=== PATIENT | male | born 1935 | race Caucasian/White ===

== ENCOUNTER 2017-02-03 08:59 | Inpatient (IN) | payer MEDICARE, BC ==
[~2017-02-03] VITALS: Ht 175.3 cm; Wt 68.4 kg
[~2017-02-03 08:59] MED LIST: ASPI-496 PO; ASPI-650 PO; CALC667C PO; CHOL20002 PO; DICY20TA3 PO; FERR325T20 PO; FOLI1TAB39 PO; ISOS30TA8 PO; LEVO75TA5 PO; METO25TA35 PO; METR250T PO; OMEP20CA9 PO; ROSU5TAB PO; SUCR1ORA11 PO; TETR250C3 PO; [UNRECOGNIZED DRUG - CODE] PO; [UNRECOGNIZED DRUG - REMARK]; [UNRECOGNIZED DRUG - REMARK] PO
[2017-02-03] MEDS ORDERED: SODIUM CHLORIDE FLUSH 10ML SYR IVF ONE (09:30)
[2017-02-03 09:55] LABS: HEMOGLOBIN 9.6 g/dL (13.7-18.0)
[2017-02-03 10:07] LABS: BLOOD UREA NITROGEN 36 mg/dL (7-18)
[2017-02-03 10:13] LABS: ASPARTATE AMINO TRANSFERASE 14 U/L (15-37)
[2017-02-03 10:14] LABS: IS PT STATUS REG ER OR PRE ER? YES
[2017-02-03] MEDS: LEVOTHYROXINE 75 MCG TABLET PO SCH (11:30)
[2017-02-03] MEDS ORDERED: POLYETHYLENE GLYCOL 17 GM PACKET PO PRN (12:00)
[2017-02-03] MEDS ORDERED: DOCUSATE 100 MG CAPSULE PO PRN (12:00)
[2017-02-03] MEDS: HEPARIN 5,000 UNITS/ML, 1ML SQ SCH ×2 (12:00→23:13)
[2017-02-03] MEDS ORDERED: ACETAMINOPHEN 325 MG TABLET PO PRN (12:00)
[2017-02-03] MEDS ORDERED: BISACODYL 10 MG SUPP PR PRN (12:00)
[2017-02-03 12:30] LABS: TOTAL IRON BINDING CAPACITY 279 mcg/dL (250-450)
[2017-02-03 12:32] LABS: IS PT STATUS REG ER OR PRE ER? YES
[2017-02-03 17:44] LABS: IS PT STATUS REG ER OR PRE ER? YES
[2017-02-03 19:45] VITALS: BP 122/54
[2017-02-03 20:00] VITALS: BP 147/68
[2017-02-03] MEDS ORDERED: TEMPLATE NON-FORMULARY MED. (Rosuvastatin Calcium** (Crestor**) 5 MG) PO SCH (21:00)
[2017-02-03 21:31] LABS: IS PT STATUS REG ER OR PRE ER? NO
[2017-02-03] MEDS: METOPROLOL TARTRATE 25 MG TABLET PO SCH (23:12)
[2017-02-04 02:07] VITALS: BP 146/74
[2017-02-04 07:30] LABS: HEMOGLOBIN 8.9 g/dL (13.7-18.0)
[2017-02-04 07:38] LABS: ASPARTATE AMINO TRANSFERASE 14 U/L (15-37); BLOOD UREA NITROGEN 56 mg/dL (7-18)
[2017-02-04 07:47] LABS: IS PT STATUS REG ER OR PRE ER? NO
[2017-02-04 08:39] VITALS: BP 146/70
[2017-02-04] MEDS ORDERED: VITAMIN B COMP W C PO SCH (09:00)
[2017-02-04] MEDS ORDERED: FOLIC ACID PO SCH (09:00)
[2017-02-04] MEDS: HEPARIN 5,000 UNITS/ML, 1ML SQ SCH ×2 (09:41→18:12)
[2017-02-04] MEDS: CHOLECALCIFEROL 1,000 UNIT TABLET PO SCH (09:42)
[2017-02-04] MEDS: ISOSORBIDE MONONITRATE ER 30 MG TABLET PO SCH (09:42)
[2017-02-04] MEDS: METOPROLOL TARTRATE 25 MG TABLET PO SCH ×2 (09:42→22:00)
[2017-02-04] MEDS: LEVOTHYROXINE 75 MCG TABLET PO SCH (09:42)
[2017-02-04 11:27] LABS: IS PT STATUS REG ER OR PRE ER? NO
[2017-02-04 14:26] VITALS: BP 142/78
[2017-02-04 20:00] VITALS: BP 162/78
[2017-02-04] MEDS: TEMPLATE NON-FORMULARY MED. (Rosuvastatin Calcium** (Crestor**) 5 MG) PO SCH (21:00)
[2017-02-05 01:21] VITALS: BP 165/80
[2017-02-05] MEDS: HEPARIN 5,000 UNITS/ML, 1ML SQ SCH ×3 (02:10→18:52)
[2017-02-05] MEDS ORDERED: REGADENOSON 0.4 MG/5 ML SYRINGE ONE (07:44)
[2017-02-05 07:57] VITALS: BP 163/79
[2017-02-05] MEDS: VITAMIN B COMP W C PO SCH (09:00)
[2017-02-05] MEDS: FOLIC ACID PO SCH (09:00)
[2017-02-05] MEDS: LEVOTHYROXINE 75 MCG TABLET PO SCH (10:41)
[2017-02-05] MEDS: METOPROLOL TARTRATE 25 MG TABLET PO SCH ×2 (10:42→20:40)
[2017-02-05] MEDS: CHOLECALCIFEROL 1,000 UNIT TABLET PO SCH (10:43)
[2017-02-05] MEDS: ISOSORBIDE MONONITRATE ER 30 MG TABLET PO SCH (10:43)
[2017-02-05 12:52] VITALS: BP 161/76
[2017-02-05] MEDS ORDERED: ARANESP 100 MCG/ML **ESRD SQ SCH (13:30)
[2017-02-05 18:03] VITALS: BP 173/78
[2017-02-05] MEDS ORDERED: LABETALOL 20 MG/4 ML IVPush ONE (19:00)
[2017-02-05 20:38] VITALS: BP 167/73
[2017-02-05] MEDS: TEMPLATE NON-FORMULARY MED. (Rosuvastatin Calcium** (Crestor**) 5 MG) PO SCH (20:40)
[2017-02-06] MEDS: HEPARIN 5,000 UNITS/ML, 1ML SQ SCH ×2 (02:11→11:05)
[2017-02-06 02:13] VITALS: BP 154/80
[2017-02-06] MEDS ORDERED: ASPIRIN 81 MG TABLET EC PO SCH (06:00)
[2017-02-06 06:45] VITALS: BP 157/76
[2017-02-06 09:23] LABS: HEP B SURF. AB < 3.1 mIU/mL (0.0-10.0)
[2017-02-06] MEDS: FOLIC ACID PO SCH (11:03)
[2017-02-06] MEDS: VITAMIN B COMP W C PO SCH (11:03)
[2017-02-06] MEDS: ISOSORBIDE MONONITRATE ER 30 MG TABLET PO SCH (11:04)
[2017-02-06] MEDS: METOPROLOL TARTRATE 25 MG TABLET PO SCH (11:04)
[2017-02-06] MEDS: CHOLECALCIFEROL 1,000 UNIT TABLET PO SCH (11:04)
[2017-02-06] MEDS: LEVOTHYROXINE 75 MCG TABLET PO SCH (11:05)
[2017-02-06] MEDS ORDERED: ASPI-621 PO (12:08)
[2017-02-06 12:30] VITALS: BP 157/74
== END 2017-02-06 13:49 | disposition home or self-care (01) | DRG 280 ==
LOC: ED 09:32 → EDIP 10:26 → 4WST 19:17 → 4EST 21:05 → DCLOUNGE 02-06 13:18
PROVIDERS: ADMIT Internal Medicine; ATTEND Family Medicine
DX: I21.19 ST elevation (STEMI) myocardial infarction involving other coronary artery of inferior wall (principal); N18.6 End stage renal disease; G93.41 Metabolic encephalopathy; F05 Delirium due to known physiological condition; E44.0 Moderate protein-calorie malnutrition; I12.0 Hypertensive chronic kidney disease with stage 5 chronic kidney disease or end stage renal disease; N17.9 Acute kidney failure, unspecified; F03.90 Unspecified dementia, unspecified severity, without behavioral disturbance, psychotic disturbance, mood disturbance, and anxiety; I25.5 Ischemic cardiomyopathy; D63.1 Anemia in chronic kidney disease; E03.9 Hypothyroidism, unspecified; E78.5 Hyperlipidemia, unspecified; F42.9 Obsessive-compulsive disorder, unspecified; G47.33 Obstructive sleep apnea (adult) (pediatric); I25.10 Atherosclerotic heart disease of native coronary artery without angina pectoris; I25.2 Old myocardial infarction; Z82.49 Family history of ischemic heart disease and other diseases of the circulatory system; Z91.81 History of falling; Z95.1 Presence of aortocoronary bypass graft; Z99.2 Dependence on renal dialysis; Z81.8 Family history of other mental and behavioral disorders; Z80.9 Family history of malignant neoplasm, unspecified; Z87.11 Personal history of peptic ulcer disease; Z68.23 Body mass index [BMI] 23.0-23.9, adult; Z90.49 Acquired absence of other specified parts of digestive tract; Z90.89 Acquired absence of other organs; Z88.0 Allergy status to penicillin
CPT/HCPCS: 36415; 70450; 71010; 78452; 80053; 80061; 81003; 82140; 82607; 82746; 83540; 83550; 83735; 83880; 84100; 84145; 84439; 84443; 84484; 85025; 85610; 86704; 86706; 87340; 93005; 93017; J0882; J1644; J2785; 92523-GN; A9502; C9898; J3490

== ENCOUNTER 2017-03-29 14:32 | Inpatient (IN) | payer MEDICARE, BC ==
[2017-03-29] VITALS (13 sets, daily range): BP systolic 97–127; BP diastolic 50–63
[~2017-03-29] VITALS: Ht 170.2 cm; Wt 66.3 kg
[~2017-03-29 14:32] MED LIST changes: +ASPI-621 PO
[2017-03-29] MEDS ORDERED: SODIUM CHLORIDE FLUSH 10ML SYR IVF ONE (15:30)
[2017-03-29 15:48] LABS: ASPARTATE AMINO TRANSFERASE 16 U/L (15-37); BLOOD UREA NITROGEN 12 mg/dL (7-18)
[2017-03-29] MEDS ORDERED: PANTOPRAZOLE 80 MG in SODIUM CHLORIDE 0.9% 50 ML IVPB ONE (15:50)
[2017-03-29 16:13] LABS: DIFF TOTAL CELLS COUNTED 100 CELL DIFF; IS PT STATUS REG ER OR PRE ER? YES
[2017-03-29 16:16] LABS: VERIFY COUNTS? YES
[2017-03-29 16:17] LABS: ANISOCYTOSIS 2+; OVALOCYTES 1+; POIKILOCYTOSIS 1+; POLYCHROMASIA 1+; ROULEAUX 1+
[2017-03-29] MEDS: PANTOPRAZOLE 80 MG in SODIUM CHLORIDE 0.9% 100 ML IV SCH ×3 (17:06→22:49)
[2017-03-29] MEDS ORDERED: SODIUM CHLORIDE 0.9% 1,000 ML IV SCH (17:07)
[2017-03-29] MEDS ORDERED: ONDANSETRON 2MG/ML, 2ML IVPush PRN (17:30)
[2017-03-29] MEDS ORDERED: LABETALOL 5MG/ML 40ML VIAL IVPush PRN (17:30)
[2017-03-29] MEDS ORDERED: morphine SULFATE 10 MG/ML, 1ML IVPush PRN (17:30)
[2017-03-29] MEDS ORDERED: ACETAMINOPHEN 500 MG TABLET ONE (18:11)
[2017-03-29] MEDS ORDERED: ACETAMINOPHEN 500 MG TABLET PO ONE (18:30)
[2017-03-29] MEDS ORDERED: CEFTRIAXONE 1,000 MG in SODIUM CHLORIDE 0.9% 50 ML IVPB ONE (18:30)
[2017-03-29] MEDS: METOPROLOL TARTRATE 25 MG TABLET PO SCH (20:26)
[2017-03-29] MEDS: ATORVASTATIN 10 MG TABLET PO SCH (20:26)
[2017-03-29] MEDS ORDERED: DARBEPOETIN 100 MCG/ML SQ SCH (21:00)
[2017-03-30 01:59] VITALS: BP 129/70
[2017-03-30] MEDS: PANTOPRAZOLE 80 MG in SODIUM CHLORIDE 0.9% 100 ML IV SCH ×2 (03:26→13:01)
[2017-03-30 05:55] LABS: BLOOD UREA NITROGEN 22 mg/dL (7-18)
[2017-03-30 06:06] LABS: ANISOCYTOSIS 1+
[2017-03-30 06:07] LABS: HYPOCHROMIA 1+; OVALOCYTES 1+; POLYCHROMASIA 1+; TARGET CELLS 1+
[2017-03-30 07:05] VITALS: BP 130/69
[2017-03-30] MEDS ORDERED: FENTANYL PF 100 MCG/2ML ONE (08:50)
[2017-03-30] MEDS ORDERED: MIDAZOLAM 1 MG/ML, 5ML ONE (08:50)
[2017-03-30] MEDS: CHOLECALCIFEROL 1,000 UNIT TABLET PO SCH (09:00)
[2017-03-30] MEDS ORDERED: FOLIC ACID PO SCH (09:00)
[2017-03-30] MEDS: METOPROLOL TARTRATE 25 MG TABLET PO SCH ×2 (09:00→20:47)
[2017-03-30] MEDS: ISOSORBIDE MONONITRATE ER 30 MG TABLET PO SCH (09:00)
[2017-03-30] MEDS ORDERED: VITAMIN B COMP W C PO SCH (09:00)
[2017-03-30] MEDS: LEVOTHYROXINE 75 MCG TABLET PO SCH (09:00)
[2017-03-30 14:15] VITALS: BP 132/76
[2017-03-30] MEDS: SUCRALFATE 1 GM/10 ML UDC PO SCH ×2 (17:15→20:46)
[2017-03-30 19:21] VITALS: BP 136/67
[2017-03-30] MEDS: ATORVASTATIN 10 MG TABLET PO SCH (20:46)
[2017-03-30 20:48] VITALS: BP 143/69
[2017-03-30] MEDS: ACETAMINOPHEN 325 MG TABLET PO PRN (20:48)
[2017-03-30] MEDS ORDERED: LABETALOL 5MG/ML 40ML VIAL IVPush PRN (21:00)
[2017-03-30] MEDS ORDERED: ONDANSETRON 2MG/ML, 2ML IVPush PRN (21:00)
[2017-03-31] MEDS: PANTOPRAZOLE 80 MG in SODIUM CHLORIDE 0.9% 100 ML IV SCH ×2 (00:48→16:29)
[2017-03-31] MEDS ORDERED: VANCOMYCIN PER PHARMACY MC PRN (01:00)
[2017-03-31] MEDS ORDERED: PHARMACY MAY ADJ FOR RENAL FX MC PRN (01:00)
[2017-03-31] MEDS ORDERED: CEFTAZIDIME PMX 2 GM/50ML 50 ML IV SCH ×2 (01:00→01:30)
[2017-03-31] MEDS ORDERED: PHARMACOKINETIC CONSULTATION MC ONE (01:30)
[2017-03-31] MEDS ORDERED: VANCOMYCIN 1,300 MG in SODIUM CHLORIDE 0.9% 250 ML IV ONE (01:30)
[2017-03-31] MEDS ORDERED: PHARMACOKINETIC MONITORING MC PRN (01:30)
[2017-03-31 01:37] VITALS: BP 141/73
[2017-03-31] MEDS: SUCRALFATE 1 GM/10 ML UDC PO SCH ×4 (05:26→20:27)
[2017-03-31] MEDS: LEVOTHYROXINE 75 MCG TABLET PO SCH (05:26)
[2017-03-31 05:37] LABS: BLOOD UREA NITROGEN 25 mg/dL (7-18)
[2017-03-31 05:40] LABS: ASPARTATE AMINO TRANSFERASE 29 U/L (15-37)
[2017-03-31 07:08] VITALS: BP 133/70
[2017-03-31] MEDS ORDERED: LIDOCAINE 1%, 20ML ONE (08:40)
[2017-03-31] MEDS ORDERED: SODIUM BICARBONATE 4.2%, 5ML ONE (08:41)
[2017-03-31] MEDS ORDERED: MIDAZOLAM 1 MG/ML, 5ML ONE (09:05)
[2017-03-31] MEDS ORDERED: FENTANYL PF 100 MCG/2ML ONE (09:06)
[2017-03-31] MEDS: METOPROLOL TARTRATE 25 MG TABLET PO SCH ×2 (10:56→20:27)
[2017-03-31] MEDS: ISOSORBIDE MONONITRATE ER 30 MG TABLET PO SCH (10:57)
[2017-03-31] MEDS: CHOLECALCIFEROL 1,000 UNIT TABLET PO SCH (10:57)
[2017-03-31] MEDS: CEFTRIAXONE PMX 1GM/50ML 50 ML IV SCH (11:40)
[2017-03-31 13:25] VITALS: BP 113/57
[2017-03-31 19:42] VITALS: BP 125/72
[2017-03-31] MEDS: ATORVASTATIN 10 MG TABLET PO SCH (20:27)
[2017-04-01 01:33] VITALS: BP 151/74
[2017-04-01] MEDS: PANTOPRAZOLE 80 MG in SODIUM CHLORIDE 0.9% 100 ML IV SCH (01:47)
[2017-04-01] MEDS: SUCRALFATE 1 GM/10 ML UDC PO SCH ×4 (05:39→19:57)
[2017-04-01] MEDS: LEVOTHYROXINE 75 MCG TABLET PO SCH (05:39)
[2017-04-01 06:40] LABS: BLOOD UREA NITROGEN 50 mg/dL (7-18)
[2017-04-01 06:48] VITALS: BP 138/73
[2017-04-01 10:07] LABS: HEP B SURF. AB < 3.1 mIU/mL (0.0-10.0)
[2017-04-01] MEDS: CHOLECALCIFEROL 1,000 UNIT TABLET PO SCH (12:43)
[2017-04-01] MEDS: ISOSORBIDE MONONITRATE ER 30 MG TABLET PO SCH (12:44)
[2017-04-01] MEDS: CEFTRIAXONE PMX 1GM/50ML 50 ML IV SCH (12:44)
[2017-04-01] MEDS: METOPROLOL TARTRATE 25 MG TABLET PO SCH ×2 (12:44→19:57)
[2017-04-01 14:24] VITALS: BP 135/67
[2017-04-01] MEDS: PANTOPROZOLE 40MG TABLET PO SCH (16:22)
[2017-04-01 19:05] VITALS: BP 128/61
[2017-04-01] MEDS: ATORVASTATIN 10 MG TABLET PO SCH (19:57)
[2017-04-01] MEDS: ACETAMINOPHEN 325 MG TABLET PO PRN (19:58)
[2017-04-02 02:22] VITALS: BP 135/55
[2017-04-02] MEDS: PANTOPROZOLE 40MG TABLET PO SCH ×2 (05:57→16:38)
[2017-04-02] MEDS: LEVOTHYROXINE 75 MCG TABLET PO SCH (05:58)
[2017-04-02] MEDS: SUCRALFATE 1 GM/10 ML UDC PO SCH ×4 (05:58→20:04)
[2017-04-02 08:55] VITALS: BP 129/70
[2017-04-02] MEDS: CHOLECALCIFEROL 1,000 UNIT TABLET PO SCH (09:01)
[2017-04-02] MEDS: ISOSORBIDE MONONITRATE ER 30 MG TABLET PO SCH (09:01)
[2017-04-02] MEDS: METOPROLOL TARTRATE 25 MG TABLET PO SCH ×2 (09:01→20:05)
[2017-04-02] MEDS: ACETAMINOPHEN 325 MG TABLET PO PRN (09:02)
[2017-04-02 09:33] LABS: BLOOD UREA NITROGEN 39 mg/dL (7-18)
[2017-04-02] MEDS: CEFTRIAXONE PMX 1GM/50ML 50 ML IV SCH (12:43)
[2017-04-02 14:48] VITALS: BP 109/56
[2017-04-02] MEDS ORDERED: VANCOMYCIN 1,300 MG in SODIUM CHLORIDE 0.9% 250 ML IV ONE (16:00)
[2017-04-02 18:43] VITALS: BP 132/64
[2017-04-02] MEDS: ATORVASTATIN 10 MG TABLET PO SCH (20:05)
[2017-04-03 01:22] VITALS: BP 121/65
[2017-04-03 05:10] LABS: ASPARTATE AMINO TRANSFERASE 58 U/L (15-37); BLOOD UREA NITROGEN 58 mg/dL (7-18)
[2017-04-03] MEDS: PANTOPROZOLE 40MG TABLET PO SCH ×2 (05:44→18:17)
[2017-04-03] MEDS: LEVOTHYROXINE 75 MCG TABLET PO SCH (05:44)
[2017-04-03] MEDS: SUCRALFATE 1 GM/10 ML UDC PO SCH ×4 (05:45→20:40)
[2017-04-03 07:03] VITALS: BP 116/67
[2017-04-03] MEDS: METOPROLOL TARTRATE 25 MG TABLET PO SCH ×2 (10:00→20:40)
[2017-04-03] MEDS: CHOLECALCIFEROL 1,000 UNIT TABLET PO SCH (10:00)
[2017-04-03] MEDS: ISOSORBIDE MONONITRATE ER 30 MG TABLET PO SCH (10:00)
[2017-04-03] MEDS: CEFTRIAXONE PMX 1GM/50ML 50 ML IV SCH (16:44)
[2017-04-03 18:22] VITALS: BP 125/61
[2017-04-03] MEDS: ATORVASTATIN 10 MG TABLET PO SCH (20:40)
[2017-04-04 02:00] VITALS: BP 133/71
[2017-04-04] MEDS: LEVOTHYROXINE 75 MCG TABLET PO SCH (06:01)
[2017-04-04] MEDS: SUCRALFATE 1 GM/10 ML UDC PO SCH ×2 (06:01→11:20)
[2017-04-04] MEDS: PANTOPROZOLE 40MG TABLET PO SCH (06:01)
[2017-04-04 06:47] VITALS: BP 136/67
[2017-04-04] MEDS: CHOLECALCIFEROL 1,000 UNIT TABLET PO SCH (08:24)
[2017-04-04] MEDS: METOPROLOL TARTRATE 25 MG TABLET PO SCH (08:24)
[2017-04-04] MEDS: ISOSORBIDE MONONITRATE ER 30 MG TABLET PO SCH (08:25)
[2017-04-04] MEDS ORDERED: PANT40TA5 PO (10:39)
[2017-04-04] MEDS ORDERED: CEFD300C37 PO (10:39)
[2017-04-04] MEDS ORDERED: SUCR1ORA2 PO (10:39)
== END 2017-04-04 13:15 | disposition home or self-care (01) | DRG 377 ==
LOC: ED 15:59 → EDIP 17:07 → 4WST 19:18
PROVIDERS: ADMIT Internal Medicine; ATTEND Internal Medicine
PROC: 0DB68ZX Excision of Stomach, Via Natural or Artificial Opening Endoscopic, Diagnostic (ICD-10-PCS; 2017-03-30)
PROC: 07DR3ZX Extraction of Iliac Bone Marrow, Percutaneous Approach, Diagnostic (ICD-10-PCS; principal; 2017-03-31)
PROC: 5A1D60Z (ICD-10-PCS; 2017-03-31)
PROC: 30233N1 Transfusion of Nonautologous Red Blood Cells into Peripheral Vein, Percutaneous Approach (ICD-10-PCS; 2017-03-31)
DX: K25.4 Chronic or unspecified gastric ulcer with hemorrhage (principal); N18.6 End stage renal disease; E43 Unspecified severe protein-calorie malnutrition; D61.818 Other pancytopenia; I13.2 Hypertensive heart and chronic kidney disease with heart failure and with stage 5 chronic kidney disease, or end stage renal disease; I50.22 Chronic systolic (congestive) heart failure; D62 Acute posthemorrhagic anemia; N39.0 Urinary tract infection, site not specified; D63.1 Anemia in chronic kidney disease; E03.9 Hypothyroidism, unspecified; E55.9 Vitamin D deficiency, unspecified; E78.5 Hyperlipidemia, unspecified; F03.90 Unspecified dementia, unspecified severity, without behavioral disturbance, psychotic disturbance, mood disturbance, and anxiety; E87.6 Hypokalemia; G47.33 Obstructive sleep apnea (adult) (pediatric); I25.10 Atherosclerotic heart disease of native coronary artery without angina pectoris; K44.9 Diaphragmatic hernia without obstruction or gangrene; Z79.82 Long term (current) use of aspirin; I25.2 Old myocardial infarction; Z82.49 Family history of ischemic heart disease and other diseases of the circulatory system; Z87.11 Personal history of peptic ulcer disease; Z88.0 Allergy status to penicillin; Z90.49 Acquired absence of other specified parts of digestive tract; Z95.1 Presence of aortocoronary bypass graft; Z99.2 Dependence on renal dialysis; Z79.899 Other long term (current) drug therapy; Z80.9 Family history of malignant neoplasm, unspecified; Z81.8 Family history of other mental and behavioral disorders
CPT/HCPCS: 36415; 36430; 71010; 77012; 80048; 80053; 80202; 81001; 82607; 82728; 82746; 83540; 83550; 83735; 83880; 84100; 84443; 84466; 84484; 85014; 85018; 85025; 85045; 85097; 85610; 86706; 86850; 86900; 86923; 87040; 87086; 87147; 87340; 88237; 88264; 88280; 88305; 88311; 88313; 93005; 96365; 99156; 99157; G0364; J0696; J0881; J2250; J3010; J3370; J3490; C9113; J0713; J7050; P9016

== ENCOUNTER 2017-08-11 10:43 | Day surgery (SDC) | payer MEDICARE, BC ==
[2017-08-08 14:55] LABS: BLOOD UREA NITROGEN 25 mg/dL (7-18)
[2017-08-08 14:56] LABS: ASPARTATE AMINO TRANSFERASE 22 U/L (15-37)
[2017-08-08 15:34] LABS: HEMATOCRIT 30.4 % (39.2-51.8); HEMOGLOBIN 10.2 g/dL (13.7-18.0); WHITE BLOOD COUNT 3.3 x10^3/uL (3.4-10)
[2017-08-08 15:38] LABS: DIFF TOTAL CELLS COUNTED 100 CELL DIFF
[2017-08-08 15:42] LABS: VERIFY COUNTS? YES
[2017-08-08 15:44] LABS: OVALOCYTES 1+
[2017-08-08 15:45] LABS: ANISOCYTOSIS 1+
[~2017-08-11] VITALS: Ht 170.2 cm; Wt 69.3 kg
[~2017-08-11 10:43] MED LIST changes: +CALC667T PO; +CEFD300C37 PO; +FERR325T18 PO; -FERR325T20 PO; +PANT40TA5 PO; +RENAPLEX; +SUCR1ORA5 PO; +[UNRECOGNIZED DRUG - OTHER] IV
[2017-08-11] MEDS ORDERED: LACTATED RINGERS 1,000 ML IV SCH (11:15)
[2017-08-11] MEDS ORDERED: SODIUM CHLORIDE 0.9% 1,000 ML IV SCH (11:57)
[2017-08-11 11:58] VITALS: BP 162/83
[2017-08-11] MEDS ORDERED: PROPOFOL 10 MG/ML, 20ML ONE (12:46)
[2017-08-11] MEDS ORDERED: ONDANSETRON 2MG/ML, 2ML ONE (12:46)
== END 2017-08-11 15:05 ==
LOC: OUT 10:43
PROVIDERS: ATTEND Internal Medicine
DX: K25.9 Gastric ulcer, unspecified as acute or chronic, without hemorrhage or perforation (principal); K31.9 Disease of stomach and duodenum, unspecified; I10 Essential (primary) hypertension; Z95.1 Presence of aortocoronary bypass graft
CPT/HCPCS: 36415; 43239; 80053; 85025; 85610; 85730; 88305; 93005; J2405; J2704; J7030

== ENCOUNTER 2017-10-28 14:53 | Inpatient (IN) | payer MEDICARE, BC ==
[2017-10-28] VITALS (7 sets, daily range): BP systolic 112–150; BP diastolic 61–75
[~2017-10-28] VITALS: Ht 170.2 cm; Wt 67.8 kg
[2017-10-28] MEDS ORDERED: ASPIRIN 81 MG TABLET CHEW PO ONE (15:30)
[2017-10-28] MEDS ORDERED: SODIUM CHLORIDE FLUSH 10ML SYR IVF ONE (15:30)
[2017-10-28] MEDS ORDERED: NITROGLYCERIN SINGLE TAB 0.4 MG SL PRN (15:30)
[2017-10-28 15:34] LABS: MEAN CORPUSCULAR HEMOGLOBIN 31.6 pg (27.5-34.5); MEAN CORPUSCULAR HGB CONC 33.4 g/dL (33.2-36.2); MEAN CORPUSCULAR VOLUME 94.6 fL (81-97); RED BLOOD COUNT 2.18 x10^6/uL (4.38-5.82)
[2017-10-28 15:42] LABS: ALBUMIN 3.4 g/dL (3.4-5.0); ANION GAP 10 mmol/L (5-15); CALCIUM 9.7 mg/dL (8.5-10.1); CHLORIDE 95 mmol/L (98-107); CREATININE 2.27 mg/dL (0.7-1.3)
[2017-10-28 15:56] LABS: MEAN PLATELET VOLUME 7.7 fL (7.4-10.4); PLATELET COUNT 93 x10^3/uL (130-400)
[2017-10-28 15:58] LABS: MD MORPH REVIEW ONLY
[2017-10-28 15:59] LABS: BASOPHILS # (AUTO) 0.01 x10^3/uL (0-0.1); BASOPHILS % (AUTO) 0 % (0-1); EOSINOPHILS # (AUTO) 0.13 x10^3/uL (0-0.4); EOSINOPHILS % (AUTO) 4 % (1-7); LYMPHOCYTES # (AUTO) 0.68 x10^3/uL (1-3.4); LYMPHOCYTES % (AUTO) 18 % (22-44); MONOCYTES # (AUTO) 0.26 x10^3/uL (0.2-0.8); MONOCYTES % (AUTO) 7 % (2-9); NEUTROPHILS % (AUTO) 71 % (42-75)
[2017-10-28 16:01] LABS: <PLATELET ESTIMATE> DECREASED; <PLT MORPHOLOGY> NORMAL PLT MORPH; ANISOCYTOSIS 1+; OVALOCYTES 1+
[2017-10-28 16:02] LABS: ROULEAUX 1+
[2017-10-28] MEDS ORDERED: SODIUM CHLORIDE 0.9% 1,000 ML IV SCH (16:26)
[2017-10-28] MEDS ORDERED: DOCUSATE 100 MG CAPSULE PO PRN (16:30)
[2017-10-28] MEDS ORDERED: PANTOPRAZOLE 40 MG IV IVPush ONE (16:30)
[2017-10-28] MEDS ORDERED: ACETAMINOPHEN 325 MG TABLET PO PRN (16:30)
[2017-10-28] MEDS ORDERED: SODIUM CHLORIDE FLUSH 10ML SYR IVF PRN (16:30)
[2017-10-28] MEDS ORDERED: HYDROcodone/APAP 5/325 TABLET PO PRN (16:30)
[2017-10-28] MEDS ORDERED: ONDANSETRON 2MG/ML, 2ML IVPush PRN (16:30)
[2017-10-28] MEDS ORDERED: MORPHINE SULFATE 4 MG/ML, 1ML IVPush PRN (16:30)
[2017-10-28] MEDS ORDERED: MAALOX/HYOSCYAMINE/LIDOCAINE 45 ML BTL PO ONE (16:30)
[2017-10-28] MEDS ORDERED: POLYETHYLENE GLYCOL 17 GM PACKET PO PRN (16:30)
[2017-10-28] MEDS ORDERED: morphine SULFATE 10 MG/ML, 1ML IVPush PRN (16:30)
[2017-10-28] MEDS ORDERED: PANTOPRAZOLE 40 MG IV ONE (17:52)
[2017-10-28] MEDS ORDERED: MAALOX/HYOSCYAMINE/LIDOCAINE 45 ML BTL ONE (17:52)
[2017-10-28] MEDS ORDERED: METOPROLOL TARTRATE 25 MG TABLET PO SCH (21:00)
[2017-10-28] MEDS: CARVEDILOL 6.25 MG TABLET PO SCH (22:11)
[2017-10-28] MEDS: ATORVASTATIN 10 MG TABLET PO SCH (22:11)
[2017-10-28] MEDS: CALCIUM ACETATE 667 MG CAPSULE PO SCH (22:11)
[2017-10-29 00:13] VITALS: BP 117/66
[2017-10-29 00:28] VITALS: BP 117/66
[2017-10-29] MEDS: PANTOPRAZOLE 80 MG in SODIUM CHLORIDE 0.9% 100 ML IV SCH ×3 (01:41→18:04)
[2017-10-29 03:11] VITALS: BP 114/64
[2017-10-29 06:22] LABS: MEAN CORPUSCULAR HEMOGLOBIN 31.5 pg (27.5-34.5); MEAN CORPUSCULAR HGB CONC 34.1 g/dL (33.2-36.2); MEAN CORPUSCULAR VOLUME 92.6 fL (81-97); RED BLOOD COUNT 2.63 x10^6/uL (4.38-5.82); RED CELL DISTRIBUTION WIDTH 20.9 % (9.4-14.8)
[2017-10-29 06:34] LABS: ALBUMIN 2.9 g/dL (3.4-5.0); ANION GAP 7 mmol/L (5-15); CALCIUM 9.2 mg/dL (8.5-10.1); CHLORIDE 96 mmol/L (98-107)
[2017-10-29 06:39] LABS: ALANINE AMINOTRANSFERASE 21 U/L (12-78); ALKALINE PHOSPHATASE 101 U/L (45-117); BILIRUBIN,TOTAL 0.7 mg/dL (0.2-1.0); CHOLESTEROL, TOTAL 89 mg/dL (140-239); CREATININE 3.37 mg/dL (0.7-1.3); HDL CHOL % 34 % (26-37); HDL CHOLESTEROL (DIRECT) 30 mg/dL (40-60); LDL CHOLESTEROL,CALCULATED 29 mg/dL (54-169); TOTAL PROTEIN 6.7 g/dL (6.4-8.2); TRIGLYCERIDES 149 mg/dL (50-200); VLDL CHOLESTEROL 30 mg/dL (0-25)
[2017-10-29 06:41] LABS: BASOPHILS # (AUTO) 0.02 x10^3/uL (0-0.1); BASOPHILS % (AUTO) 0 % (0-1); EOSINOPHILS # (AUTO) 0.15 x10^3/uL (0-0.4); EOSINOPHILS % (AUTO) 4 % (1-7); LYMPHOCYTES # (AUTO) 0.51 x10^3/uL (1-3.4); LYMPHOCYTES % (AUTO) 14 % (22-44); MD SCAN; MEAN PLATELET VOLUME 8.4 fL (7.4-10.4); MONOCYTES # (AUTO) 0.34 x10^3/uL (0.2-0.8); MONOCYTES % (AUTO) 10 % (2-9); NEUTROPHILS # (AUTO) 2.53 x10^3/uL (1.8-6.8); NEUTROPHILS % (AUTO) 71 % (42-75); PLATELET COUNT 71 x10^3/uL (130-400)
[2017-10-29 07:38] VITALS: BP 124/67
[2017-10-29] MEDS: SENNA/DOCUSATE TABLET PO SCH (09:00)
[2017-10-29] MEDS ORDERED: FENTANYL PF 100 MCG/2ML ONE (09:28)
[2017-10-29] MEDS ORDERED: MIDAZOLAM 1 MG/ML, 5ML ONE (09:28)
[2017-10-29] MEDS: MULTIVITS,STRESS FORMULA 1 TABLET PO SCH (11:15)
[2017-10-29] MEDS: ISOSORBIDE MONONITRATE ER 30 MG TABLET PO SCH (11:15)
[2017-10-29] MEDS: CALCIUM ACETATE 667 MG CAPSULE PO SCH ×3 (11:15→18:03)
[2017-10-29] MEDS: LEVOTHYROXINE 75 MCG TABLET PO SCH (11:15)
[2017-10-29] MEDS: CARVEDILOL 6.25 MG TABLET PO SCH ×2 (11:15→20:31)
[2017-10-29 14:12] VITALS: BP 95/61
[2017-10-29 19:35] VITALS: BP 122/60
[2017-10-29] MEDS: ATORVASTATIN 10 MG TABLET PO SCH (20:31)
[2017-10-30 03:04] VITALS: BP 134/71
[2017-10-30 05:27] LABS: MEAN CORPUSCULAR HEMOGLOBIN 31.2 pg (27.5-34.5); MEAN CORPUSCULAR HGB CONC 33.7 g/dL (33.2-36.2); MEAN CORPUSCULAR VOLUME 92.8 fL (81-97); MEAN PLATELET VOLUME 8.6 fL (7.4-10.4); PLATELET COUNT 66 x10^3/uL (130-400); RED BLOOD COUNT 2.49 x10^6/uL (4.38-5.82); RED CELL DISTRIBUTION WIDTH 21.9 % (9.4-14.8)
[2017-10-30 05:42] LABS: ALANINE AMINOTRANSFERASE 24 U/L (12-78); ALBUMIN 2.9 g/dL (3.4-5.0); ANION GAP 11 mmol/L (5-15); CALCIUM 8.7 mg/dL (8.5-10.1); CHLORIDE 98 mmol/L (98-107); CREATININE 5.09 mg/dL (0.7-1.3)
[2017-10-30 05:44] LABS: ALKALINE PHOSPHATASE 105 U/L (45-117); BILIRUBIN,TOTAL 0.6 mg/dL (0.2-1.0); TOTAL PROTEIN 6.5 g/dL (6.4-8.2)
[2017-10-30 05:50] LABS: BASOPHILS # (AUTO) 0.02 x10^3/uL (0-0.1); BASOPHILS % (AUTO) 1 % (0-1); EOSINOPHILS # (AUTO) 0.18 x10^3/uL (0-0.4); EOSINOPHILS % (AUTO) 5 % (1-7); LYMPHOCYTES % (AUTO) 16 % (22-44); MD SCAN; MONOCYTES # (AUTO) 0.36 x10^3/uL (0.2-0.8); MONOCYTES % (AUTO) 9 % (2-9); NEUTROPHILS # (AUTO) 2.67 x10^3/uL (1.8-6.8); NEUTROPHILS % (AUTO) 70 % (42-75)
[2017-10-30] MEDS: LEVOTHYROXINE 75 MCG TABLET PO SCH (05:56)
[2017-10-30] MEDS: PANTOPRAZOLE 80 MG in SODIUM CHLORIDE 0.9% 100 ML IV SCH ×2 (05:56→17:02)
[2017-10-30] MEDS: CARVEDILOL 6.25 MG TABLET PO SCH ×2 (05:56→17:04)
[2017-10-30 07:43] VITALS: BP 130/65
[2017-10-30] MEDS: CALCIUM ACETATE 667 MG CAPSULE PO SCH ×3 (08:39→17:04)
[2017-10-30] MEDS: ISOSORBIDE MONONITRATE ER 30 MG TABLET PO SCH (08:39)
[2017-10-30] MEDS: SENNA/DOCUSATE TABLET PO SCH (08:40)
[2017-10-30] MEDS: MULTIVITS,STRESS FORMULA 1 TABLET PO SCH (08:40)
[2017-10-30 14:54] VITALS: BP 126/61
[2017-10-30 17:08] VITALS: BP 139/74
[2017-10-30] MEDS: ATORVASTATIN 10 MG TABLET PO SCH (20:59)
[2017-10-30 22:12] VITALS: BP 125/74
[2017-10-31] MEDS: PANTOPRAZOLE 80 MG in SODIUM CHLORIDE 0.9% 100 ML IV SCH ×2 (03:21→18:02)
[2017-10-31 04:32] VITALS: BP 125/70
[2017-10-31] MEDS: CARVEDILOL 6.25 MG TABLET PO SCH ×2 (04:34→18:02)
[2017-10-31] MEDS: LEVOTHYROXINE 75 MCG TABLET PO SCH (04:34)
[2017-10-31 06:23] LABS: MEAN CORPUSCULAR HEMOGLOBIN 31.7 pg (27.5-34.5); MEAN CORPUSCULAR HGB CONC 33.6 g/dL (33.2-36.2); MEAN CORPUSCULAR VOLUME 94.4 fL (81-97); MEAN PLATELET VOLUME 8.2 fL (7.4-10.4); PLATELET COUNT 65 x10^3/uL (130-400); RED BLOOD COUNT 2.51 x10^6/uL (4.38-5.82); RED CELL DISTRIBUTION WIDTH 20.9 % (9.4-14.8)
[2017-10-31 06:30] LABS: ALANINE AMINOTRANSFERASE 25 U/L (12-78); ALBUMIN 2.9 g/dL (3.4-5.0); ANION GAP 8 mmol/L (5-15); CALCIUM 8.9 mg/dL (8.5-10.1); CHLORIDE 103 mmol/L (98-107); CREATININE 3.99 mg/dL (0.7-1.3)
[2017-10-31 06:32] LABS: ALKALINE PHOSPHATASE 110 U/L (45-117); BILIRUBIN,TOTAL 0.5 mg/dL (0.2-1.0); TOTAL PROTEIN 6.6 g/dL (6.4-8.2)
[2017-10-31 06:38] LABS: BASOPHILS # (AUTO) 0.02 x10^3/uL (0-0.1); BASOPHILS % (AUTO) 1 % (0-1); EOSINOPHILS % (AUTO) 6 % (1-7); LYMPHOCYTES # (AUTO) 0.51 x10^3/uL (1-3.4); LYMPHOCYTES % (AUTO) 16 % (22-44); MD SCAN; MONOCYTES # (AUTO) 0.33 x10^3/uL (0.2-0.8); MONOCYTES % (AUTO) 10 % (2-9); NEUTROPHILS # (AUTO) 2.21 x10^3/uL (1.8-6.8); NEUTROPHILS % (AUTO) 68 % (42-75)
[2017-10-31 06:50] VITALS: BP 124/61
[2017-10-31] MEDS: CALCIUM ACETATE 667 MG CAPSULE PO SCH ×3 (07:38→18:02)
[2017-10-31] MEDS: ISOSORBIDE MONONITRATE ER 30 MG TABLET PO SCH (08:52)
[2017-10-31] MEDS ORDERED: PROPOFOL 10 MG/ML, 20ML ONE (13:04)
[2017-10-31] MEDS ORDERED: PHENYLEPHRINE 10 MG/ML ONE (13:04)
[2017-10-31] MEDS ORDERED: SIMETHICONE DROPS 40 MG/0.6 ML BOTTLE ONE (13:34)
[2017-10-31] MEDS: SENNA/DOCUSATE TABLET PO SCH (15:04)
[2017-10-31] MEDS: MULTIVITS,STRESS FORMULA 1 TABLET PO SCH (15:04)
[2017-10-31 15:09] VITALS: BP 143/70
[2017-10-31] MEDS: ATORVASTATIN 10 MG TABLET PO SCH (19:44)
[2017-10-31 20:14] VITALS: BP 131/73
[2017-10-31 23:48] LABS: CLOSTRIDIUM DIFFICILE ANTIGEN NEGATIVE; CLOSTRIDIUM DIFFICILE TOXIN NEGATIVE (Negative)
[2017-11-01 01:34] VITALS: BP 138/71
[2017-11-01] MEDS: PANTOPRAZOLE 80 MG in SODIUM CHLORIDE 0.9% 100 ML IV SCH ×3 (03:40→20:53)
[2017-11-01] MEDS: LEVOTHYROXINE 75 MCG TABLET PO SCH (05:38)
[2017-11-01] MEDS: CARVEDILOL 6.25 MG TABLET PO SCH ×2 (05:38→17:16)
[2017-11-01 08:41] VITALS: BP 130/61
[2017-11-01] MEDS: SENNA/DOCUSATE TABLET PO SCH (09:00)
[2017-11-01] MEDS: MULTIVITS,STRESS FORMULA 1 TABLET PO SCH (09:14)
[2017-11-01] MEDS: CALCIUM ACETATE 667 MG CAPSULE PO SCH ×3 (09:14→17:16)
[2017-11-01] MEDS: ISOSORBIDE MONONITRATE ER 30 MG TABLET PO SCH (09:14)
[2017-11-01] MEDS ORDERED: REGADENOSON 0.4 MG/5 ML SYRINGE ONE (10:02)
[2017-11-01] MEDS ORDERED: ARANESP 100 MCG/ML **ESRD SQ SCH (13:30)
[2017-11-01 16:56] VITALS: BP 147/71
[2017-11-01 19:45] VITALS: BP 123/55
[2017-11-01] MEDS: ATORVASTATIN 10 MG TABLET PO SCH (20:53)
[2017-11-02] MEDS: PANTOPRAZOLE 80 MG in SODIUM CHLORIDE 0.9% 100 ML IV SCH ×2 (01:00→08:16)
[2017-11-02 01:59] VITALS: BP 105/47
[2017-11-02 04:55] VITALS: BP 117/59
[2017-11-02] MEDS: LEVOTHYROXINE 75 MCG TABLET PO SCH (04:59)
[2017-11-02] MEDS: CARVEDILOL 6.25 MG TABLET PO SCH (04:59)
[2017-11-02 07:11] VITALS: BP 128/52
[2017-11-02] MEDS: MULTIVITS,STRESS FORMULA 1 TABLET PO SCH (08:16)
[2017-11-02] MEDS: CALCIUM ACETATE 667 MG CAPSULE PO SCH ×2 (08:16→12:32)
[2017-11-02] MEDS: ISOSORBIDE MONONITRATE ER 30 MG TABLET PO SCH (08:17)
[2017-11-02] MEDS ORDERED: OMEP-110 PO (11:46)
[2017-11-02 12:26] VITALS: BP 126/51
[2017-11-02] MEDS ORDERED: OMEPRAZOLE 20 MG CAPSULE.DR PO ONE (12:30)
[2017-11-02] MEDS ORDERED: OMEPRAZOLE 20 MG CAPSULE.DR PO SCH (21:00)
== END 2017-11-02 14:20 | disposition home or self-care (01) | DRG 377 ==
LOC: ED 16:09 → EDIP 16:10 → SUATTDRO 16:15 → ED 16:21 → 5SO 18:17
PROVIDERS: ADMIT Family Medicine; ATTEND Family Medicine
PROC: 30233N1 Transfusion of Nonautologous Red Blood Cells into Peripheral Vein, Percutaneous Approach (ICD-10-PCS; 2017-10-28)
PROC: 5A1D70Z Performance of Urinary Filtration, Intermittent, Less than 6 Hours Per Day (ICD-10-PCS; 2017-10-30)
PROC: 0W3P8ZZ Control Bleeding in Gastrointestinal Tract, Via Natural or Artificial Opening Endoscopic (ICD-10-PCS; 2017-10-31)
PROC: 0D568ZZ Destruction of Stomach, Via Natural or Artificial Opening Endoscopic (ICD-10-PCS; 2017-10-31)
PROC: 0DB68ZX Excision of Stomach, Via Natural or Artificial Opening Endoscopic, Diagnostic (ICD-10-PCS; principal; 2017-10-31 13:00)
PROC: 5A1D70Z Performance of Urinary Filtration, Intermittent, Less than 6 Hours Per Day (ICD-10-PCS; 2017-11-01)
DX: K29.71 Gastritis, unspecified, with bleeding (principal); N18.6 End stage renal disease; I13.2 Hypertensive heart and chronic kidney disease with heart failure and with stage 5 chronic kidney disease, or end stage renal disease; D69.6 Thrombocytopenia, unspecified; I27.20 Pulmonary hypertension, unspecified; D62 Acute posthemorrhagic anemia; D63.1 Anemia in chronic kidney disease; I50.42 Chronic combined systolic (congestive) and diastolic (congestive) heart failure; K25.4 Chronic or unspecified gastric ulcer with hemorrhage; E03.9 Hypothyroidism, unspecified; E78.5 Hyperlipidemia, unspecified; E87.6 Hypokalemia; F03.90 Unspecified dementia, unspecified severity, without behavioral disturbance, psychotic disturbance, mood disturbance, and anxiety; G47.33 Obstructive sleep apnea (adult) (pediatric); G89.29 Other chronic pain; I25.10 Atherosclerotic heart disease of native coronary artery without angina pectoris; K44.9 Diaphragmatic hernia without obstruction or gangrene; B99.8 Other infectious disease; D50.9 Iron deficiency anemia, unspecified; Z95.1 Presence of aortocoronary bypass graft; Z90.49 Acquired absence of other specified parts of digestive tract; Z87.891 Personal history of nicotine dependence; Z99.2 Dependence on renal dialysis; I25.2 Old myocardial infarction; Z79.82 Long term (current) use of aspirin; Z82.49 Family history of ischemic heart disease and other diseases of the circulatory system; Z87.11 Personal history of peptic ulcer disease; Z90.89 Acquired absence of other organs; Z88.0 Allergy status to penicillin; Z81.8 Family history of other mental and behavioral disorders; Z80.9 Family history of malignant neoplasm, unspecified; K31.811 Angiodysplasia of stomach and duodenum with bleeding
CPT/HCPCS: 36415; 36430; 71045; 78452; 80048; 80053; 80061; 82040; 83735; 83880; 84100; 84484; 85014; 85018; 85025; 86677; 86704; 86706; 86850; 86900; 86923; 87324; 87340; 88305; 88342; 93005; 93017; 93306; J0882; J2250; J2704; J2785; J3010; A9502; C9113; C9898; G0461; J2370; J7030; P9016

== ENCOUNTER → 2018-01-16 | Outpatient (CLI) | payer MEDICARE, BC ==
[~2018-01-16] MED LIST changes: +OMEP-110 PO
== END | disposition home or self-care (01) ==
LOC: CFH 09:18
PROVIDERS: ATTEND Psychiatry & Neurology Neurology
DX: G31.9 Degenerative disease of nervous system, unspecified (principal)
CPT/HCPCS: 70551; 82565

== ENCOUNTER 2018-12-26 08:33 | Inpatient (IN) | payer MEDICARE, BC ==
[~2018-12-26] VITALS: Ht 172.7 cm; Wt 63.9 kg
[~2018-12-26 08:33] MED LIST changes: -ASPI-621 PO; +ASPI81TA45 PO; -CHOL20002 PO; +CHOL200052 PO; +TETR-16 PO; -TETR250C3 PO
--- NOTE | 2018-12-26 09:50 | NUR ---
Pt presents to ED with c/o center chest pain that is dull that started this morning. Pain is intermittent and does not radiate. Pt denies cp, sob, n/v/d at this time. Pt missed dialysis this morning due to chest pain and coming to ED. PIV established. Pt resting on gurney connected to all monitors. All safety measures in place. Call light within reach. NADN.
[2018-12-26 09:55] LABS: BASOPHILS # (AUTO) 0.01 x10^3/uL (0-0.1); BASOPHILS % (AUTO) 0 % (0-1); EOSINOPHILS # (AUTO) 0.77 x10^3/uL (0-0.4); EOSINOPHILS % (AUTO) 10 % (1-7); LYMPHOCYTES # (AUTO) 0.47 x10^3/uL (1-3.4); LYMPHOCYTES % (AUTO) 6 % (22-44); MD NO; MEAN CORPUSCULAR HEMOGLOBIN 32.9 pg (27.5-34.5); MEAN CORPUSCULAR HGB CONC 33.9 g/dL (33.2-36.2); MEAN CORPUSCULAR VOLUME 96.8 fL (81-97); MEAN PLATELET VOLUME 8.1 fL (7.4-10.4); MONOCYTES # (AUTO) 0.55 x10^3/uL (0.2-0.8); MONOCYTES % (AUTO) 7 % (2-9); NEUTROPHILS % (AUTO) 76 % (42-75); PLATELET COUNT 102 x10^3/uL (130-400); RED BLOOD COUNT 3.71 x10^6/uL (4.38-5.82); RED CELL DISTRIBUTION WIDTH 17.4 % (9.4-14.8)
[2018-12-26 10:04] LABS: ALANINE AMINOTRANSFERASE 24 U/L (12-78); ALBUMIN 3.2 g/dL (3.4-5.0); ANION GAP 7 mmol/L (5-15); CALCIUM 9.1 mg/dL (8.5-10.1); CHLORIDE 99 mmol/L (98-107); CREATININE 5.92 mg/dL (0.7-1.3)
[2018-12-26 10:05] LABS: INTERNATIONAL NORMALIZED RATIO 1.02 (0.93-1.1); PROTHROMBIN TIME 10.7 Seconds (9.6-11.5)
[2018-12-26 10:08] LABS: ALKALINE PHOSPHATASE 214 U/L (45-117); BILIRUBIN,TOTAL 0.6 mg/dL (0.2-1.0); TOTAL PROTEIN 8.4 g/dL (6.4-8.2)
--- NOTE | 2018-12-26 11:43 | NUR ---
Pt back to room from CT resting on [facility]. Pt connected to NIBP and continous pulse ox. Pt provided apple juice and water per request. NADN. No needs requested at this time. All safety measures in place. Call light within reach.
[2018-12-26] MEDS ORDERED: ACETAMINOPHEN 325 MG TABLET PO PRN (13:00)
--- NOTE | 2018-12-26 13:00 | NUR ---
Provided report to TERRA Chavarria. All questions answered. Pt ready to transfer to floor from ED.
--- NOTE | 2018-12-26 13:41 | NUR ---
pt is resting waiting for rm assignment
--- NOTE | 2018-12-26 13:44 | NUR ---
pt is npo for admit md order
--- NOTE | 2018-12-26 13:44 | NUR ---
vss stable pt wants to eat ??? will recheck
[2018-12-26 13:45] LABS: TROPONIN I 0.019 ng/mL (0.000-0.045)
[2018-12-26] MEDS ORDERED: OMNIPAQUE 350 MG/ML, 100ML BOTTLE ONE (14:07)
--- NOTE | 2018-12-26 14:16 | NUR ---
Provided report to TERRA Flores. All questions answered. Pt ready to transfer to floor from ED.
--- NOTE | 2018-12-26 14:45 | NUR ---
Pt transported to floor from ED and left with all personal belongings.
[2018-12-26 15:12] VITALS: BP 166/84
[2018-12-26] MEDS: HEPARIN 5,000 UNITS/ML, 1ML SQ SCH (15:38)
[2018-12-26 17:24] LABS: TROPONIN I 0.034 ng/mL (0.000-0.045)
[2018-12-26 20:09] VITALS: BP 125/75
[2018-12-26] MEDS ORDERED: ATORVASTATIN 10 MG TABLET PO SCH (21:00)
[2018-12-26 21:17] LABS: TROPONIN I 0.034 ng/mL (0.000-0.045)
[2018-12-26] MEDS: METOPROLOL TARTRATE 25 MG TABLET PO SCH (21:47)
[2018-12-26] MEDS: OMEPRAZOLE 20 MG CAPSULE.DR PO SCH (21:48)
[2018-12-26] MEDS: CALCIUM ACETATE 667 MG CAPSULE PO SCH (21:49)
[2018-12-27] MEDS: HEPARIN 5,000 UNITS/ML, 1ML SQ SCH ×2 (00:46→08:57)
[2018-12-27 03:27] VITALS: BP 127/68
[2018-12-27] MEDS ORDERED: LEVOTHYROXINE 75 MCG TABLET PO SCH (06:00)
[2018-12-27 06:13] LABS: MEAN CORPUSCULAR HEMOGLOBIN 31.9 pg (27.5-34.5); MEAN CORPUSCULAR HGB CONC 33.2 g/dL (33.2-36.2); MEAN CORPUSCULAR VOLUME 96.2 fL (81-97); MEAN PLATELET VOLUME 8.2 fL (7.4-10.4); NEUTROPHILS % (AUTO) 70 % (42-75); PLATELET COUNT 93 x10^3/uL (130-400); RED BLOOD COUNT 3.48 x10^6/uL (4.38-5.82); RED CELL DISTRIBUTION WIDTH 17.6 % (9.4-14.8)
[2018-12-27 06:18] LABS: ANION GAP 5 mmol/L (5-15); CHLORIDE 96 mmol/L (98-107)
[2018-12-27 06:20] LABS: CREATININE 3.96 mg/dL (0.7-1.3)
[2018-12-27 06:38] LABS: BASOPHILS # (AUTO) 0.01 x10^3/uL (0-0.1); BASOPHILS % (AUTO) 0 % (0-1); EOSINOPHILS # (AUTO) 0.62 x10^3/uL (0-0.4); EOSINOPHILS % (AUTO) 11 % (1-7); LYMPHOCYTES # (AUTO) 0.46 x10^3/uL (1-3.4); LYMPHOCYTES % (AUTO) 8 % (22-44); MD SCAN; MONOCYTES # (AUTO) 0.61 x10^3/uL (0.2-0.8); MONOCYTES % (AUTO) 11 % (2-9); NEUTROPHILS # (AUTO) 3.95 x10^3/uL (1.8-6.8)
[2018-12-27 08:15] VITALS: BP 138/70
[2018-12-27] MEDS: OMEPRAZOLE 20 MG CAPSULE.DR PO SCH (08:56)
[2018-12-27] MEDS: CALCIUM ACETATE 667 MG CAPSULE PO SCH (08:56)
[2018-12-27] MEDS: METOPROLOL TARTRATE 25 MG TABLET PO SCH (08:57)
[2018-12-27] MEDS ORDERED: ISOSORBIDE MONONITRATE ER 30 MG TABLET PO SCH (09:00)
[2018-12-27] MEDS ORDERED: MULTIVITS,STRESS FORMULA 1 TABLET PO SCH (09:00)
[2018-12-27] MEDS ORDERED: CHOLECALCIFEROL 1,000 UNIT TABLET PO SCH (09:00)
== END 2018-12-27 13:34 | disposition home or self-care (01) | DRG 640 ==
LOC: ED 11:49 → EDIP 12:46 → 4WST 14:50
PROVIDERS: ADMIT Internal Medicine; ATTEND Internal Medicine
PROC: 5A1D70Z Performance of Urinary Filtration, Intermittent, Less than 6 Hours Per Day (ICD-10-PCS; principal; 2018-12-26)
DX: E87.5 Hyperkalemia (principal); N18.6 End stage renal disease; I13.2 Hypertensive heart and chronic kidney disease with heart failure and with stage 5 chronic kidney disease, or end stage renal disease; I50.22 Chronic systolic (congestive) heart failure; R07.9 Chest pain, unspecified; D63.1 Anemia in chronic kidney disease; D69.6 Thrombocytopenia, unspecified; E03.9 Hypothyroidism, unspecified; E55.9 Vitamin D deficiency, unspecified; E78.5 Hyperlipidemia, unspecified; I27.20 Pulmonary hypertension, unspecified; I25.10 Atherosclerotic heart disease of native coronary artery without angina pectoris; E88.89 Other specified metabolic disorders; F03.90 Unspecified dementia, unspecified severity, without behavioral disturbance, psychotic disturbance, mood disturbance, and anxiety; G47.33 Obstructive sleep apnea (adult) (pediatric); Z79.899 Other long term (current) drug therapy; Z82.49 Family history of ischemic heart disease and other diseases of the circulatory system; Z87.11 Personal history of peptic ulcer disease; Z88.0 Allergy status to penicillin; Z95.1 Presence of aortocoronary bypass graft; Z99.2 Dependence on renal dialysis; I25.2 Old myocardial infarction; Z90.49 Acquired absence of other specified parts of digestive tract; Z90.89 Acquired absence of other organs
CPT/HCPCS: 36415; 74177; 80048; 80053; 83690; 83735; 84100; 84484; 85025; 85610; 85730; 86706; 86803; 87340; 93005; 99285; G0378; J1644; Q9967

== ENCOUNTER 2018-12-31 15:13 | Inpatient (IN) | payer MEDICARE, BC ==
[~2018-12-31] VITALS: Ht 170.2 cm; Wt 66.2 kg
--- NOTE | 2018-12-31 15:49 | NUR ---
pt to room from lobby. pt assisted to ngozi. pt given gown to change
[2018-12-31 15:56] LABS: ALANINE AMINOTRANSFERASE 37 U/L (12-78); ALBUMIN 2.9 g/dL (3.4-5.0); ANION GAP 8 mmol/L (5-15); CALCIUM 9.2 mg/dL (8.5-10.1); CHLORIDE 100 mmol/L (98-107)
[2018-12-31 15:57] LABS: MEAN CORPUSCULAR HEMOGLOBIN 31.3 pg (27.5-34.5); MEAN CORPUSCULAR HGB CONC 32.5 g/dL (33.2-36.2); MEAN CORPUSCULAR VOLUME 96.1 fL (81-97); MEAN PLATELET VOLUME 7.8 fL (7.4-10.4); PLATELET COUNT 152 x10^3/uL (130-400); RED BLOOD COUNT 3.96 x10^6/uL (4.38-5.82)
--- NOTE | 2018-12-31 15:59 | NUR ---
83 y/o male presents to ed with c/o CP. PER PT , "HE WAS HERE FRIDAY AND DISCHARGED FRIDAY. HE HAS SOME CHEST PAIN. WE HAVE A FOLLOW UP APPT NEXT FRIDAY. HE FELL TWICE FRIDAY. HE DIDN'T REALLY HURT HIMSELF. I DIDN'T CALL THE AMBULANCE." WHEN PT WAS ASSISTED TO [facility], PT C/O PAIN WITH MOVEMENT RIGHT RIB AREA. PT STATED "I DIDN'T HAVE ANY PAIN WHEN I DISCHARGED." PER , HE TOLD HER DIFFERENT. PT PLACED ON CONT PULSE OX,NIBP, CIVIL ENGINEERING ASSISTANT. NO C/O N/V/D, SYNCOPE, CP, SOB.
[2018-12-31 16:00] LABS: ALKALINE PHOSPHATASE 249 U/L (45-117); BILIRUBIN,TOTAL 0.9 mg/dL (0.2-1.0); TOTAL PROTEIN 8.4 g/dL (6.4-8.2); TROPONIN I 0.046 ng/mL (0.000-0.045)
[2018-12-31 16:14] LABS: MD YES
[2018-12-31 16:17] LABS: BAND#(MANUAL) 0.96 x10^3/uL; BANDS%(MANUAL) 6 % (0-7); EOS% (MANUAL) 10 % (1-7); LYMPH#(MANUAL) 0.48 x10^3/uL (1-3.4); LYMPHS% (MANUAL) 3 % (22-44); MONOS#(MANUAL) 0.64 x10^3/uL (0.3-2.7); MONOS% (MANUAL) 4 % (2-9); SEG#(MANUAL) 12.32 x10^3/uL (1.8-6.8); SEGS% (MANUAL) 77 % (42-75)
[2018-12-31 16:18] LABS: ANISOCYTOSIS 1+
[2018-12-31 16:19] LABS: <PLATELET ESTIMATE> ADEQUATE; <PLT MORPHOLOGY> NORMAL PLT MORPH; POLYCHROMASIA 1+
--- NOTE | 2018-12-31 17:16 | NUR ---
PT RESTING ON GURNEY. US GUIDED PIV ESTABLISHED BY BREAST WORKER. PT TOLERATED WITH NO COMPLICATIONS. NO ACUTE DISTRESS NOTED. BEDSIDE.
--- NOTE | 2018-12-31 17:17 | NUR ---
PT AWARE OF UA NEEDED. PT STATES "I HAVE NONE TO GO. I HAD DIALYSIS TODAY." WILL CONTINUE TO MONITOR.
[2018-12-31] MEDS ORDERED: SODIUM CHLORIDE 0.9% 1,000ML IVBOLUS ONE (17:30)
[2018-12-31] MEDS ORDERED: SODIUM CHLORIDE FLUSH 10ML SYR IVF ONE (17:30)
[2018-12-31] MEDS ORDERED: CINA30TA2 PO (17:40)
--- NOTE | 2018-12-31 17:52 | NUR ---
PT SLEEPING INTERMITTENTLY ON GURNEY. NO ACUTE DISTRESS NOTED. VSS. WENT HOME. WILL CONTINUE TO MONITOR. NO NEEDS REQUESTED AT THIS TIME.
--- NOTE | 2018-12-31 18:45 | NUR ---
LATE ENTRY FOR 1820: PT FOUND STANDING NEXT TO [facility]. PT PULLED OUT PIV. TIP INTACT. PT REORIENTED BACK TO [facility]. NEW GOWN PLACED. ALL MONITORS PLACED. NEW PIV PLACED. NO ACUTE DISTRESS NOTED.
--- NOTE | 2018-12-31 19:06 | NUR ---
PT RESTING ON GURNEY. PT STATES "I KEEP FALLING ASLEEP." PT PLACED ON 2LPM OXYGEN D/T DESATURATION WHILE SLEEPING. NO ACUTE DISTRESS NOTED.
--- NOTE | 2018-12-31 19:16 | NUR ---
BEDSIDE REPORT TO TERRA ORTIZ.
--- NOTE | 2018-12-31 19:30 | NUR ---
HOSPITALIST AT BEDSIDE.
[2018-12-31] MEDS ORDERED: HALOPERIDOL 5 MG/ML IVPush PRN (20:00)
[2018-12-31] MEDS ORDERED: NITROGLYCERIN 0.4 MG BOTTLE (25 TABS) SL PRN (20:00)
[2018-12-31] MEDS ORDERED: ONDANSETRON 2MG/ML, 2ML IVPush PRN (20:00)
[2018-12-31] MEDS ORDERED: ACETAMINOPHEN 325 MG TABLET PO PRN (20:00)
[2018-12-31] MEDS ORDERED: hydrALAzine 20 MG/ML, 1ML IVPush PRN (20:00)
--- NOTE | 2018-12-31 20:10 | NUR ---
DISCUSSED PTS DOSE OF LOPRESSOR DUE AT 2100. PT REC'D 500ML NS BOLUS EARLIER FOR LOW BP. BP NOW 127/[address] RICARDO SILVA TO GIVE DOSE OF LOPRESSOR ORDERED.
[2018-12-31] MEDS ORDERED: HEPARIN 5,000 UNITS/ML, 1ML ONE (20:21)
[2018-12-31] MEDS ORDERED: METOPROLOL TARTRATE 25 MG TABLET ONE (20:21)
[2018-12-31] MEDS: METOPROLOL TARTRATE 25 MG TABLET PO SCH (20:27)
[2018-12-31] MEDS: HEPARIN 5,000 UNITS/ML, 1ML SQ SCH (20:27)
--- NOTE | 2018-12-31 20:34 | NUR ---
SANDWICH AND YOGURT PARFAIT PROVIDED. PT HAD A FEW BITES BUT THEN SAID HE WAS NOT HUNGRY. VSS, CALL LIGHT W/I REACH AND PT REMINDED TO USE CALL LIGHT. PT REQUIRES FREQUENT REORIENTATION
[2018-12-31 20:39] LABS: TROPONIN I 0.064 ng/mL (0.000-0.045)
[2018-12-31] MEDS: ATORVASTATIN 10 MG TABLET PO SCH (20:48)
[2018-12-31] MEDS ORDERED: ATORVASTATIN 10 MG TABLET PO SCH ×2 (21:00)
[2018-12-31 22:14] VITALS: BP 136/76
[2019-01-01] VITALS (7 sets, daily range): BP systolic 134–170; BP diastolic 63–86
[2019-01-01 03:23] LABS: ANION GAP 7 mmol/L (5-15); CHLORIDE 103 mmol/L (98-107); CHOLESTEROL, TOTAL 110 mg/dL (140-239); CREATININE 4.62 mg/dL (0.7-1.3); TRIGLYCERIDES 137 mg/dL (50-200); VLDL CHOLESTEROL 27 mg/dL (0-25)
[2019-01-01 03:25] LABS: CHOL/HDL RATIO 3.3; HDL CHOL % 30 % (26-37); HDL CHOLESTEROL (DIRECT) 33 mg/dL (40-60); LDL CHOLESTEROL,CALCULATED 50 mg/dL (54-169); LDL/HDL RATIO 1.5 (0.5-3.0)
[2019-01-01 03:26] LABS: TROPONIN I 0.081 ng/mL (0.000-0.045)
[2019-01-01 03:44] LABS: BASOPHILS # (AUTO) 0.01 x10^3/uL (0-0.1); BASOPHILS % (AUTO) 0 % (0-1); EOSINOPHILS # (AUTO) 1.58 x10^3/uL (0-0.4); EOSINOPHILS % (AUTO) 15 % (1-7); LYMPHOCYTES # (AUTO) 0.59 x10^3/uL (1-3.4); LYMPHOCYTES % (AUTO) 6 % (22-44); MD SCAN; MEAN CORPUSCULAR HEMOGLOBIN 32.1 pg (27.5-34.5); MEAN CORPUSCULAR HGB CONC 33.2 g/dL (33.2-36.2); MEAN CORPUSCULAR VOLUME 96.6 fL (81-97); MEAN PLATELET VOLUME 8.1 fL (7.4-10.4); MONOCYTES # (AUTO) 0.75 x10^3/uL (0.2-0.8); MONOCYTES % (AUTO) 7 % (2-9); NEUTROPHILS # (AUTO) 7.43 x10^3/uL (1.8-6.8); NEUTROPHILS % (AUTO) 72 % (42-75); PLATELET COUNT 96 x10^3/uL (130-400); RED BLOOD COUNT 3.66 x10^6/uL (4.38-5.82); RED CELL DISTRIBUTION WIDTH 17.9 % (9.4-14.8)
[2019-01-01] MEDS: HEPARIN 5,000 UNITS/ML, 1ML SQ SCH ×3 (04:07→21:27)
[2019-01-01] MEDS: ASPIRIN 325 MG TABLET PO SCH (05:35)
[2019-01-01] MEDS: CINACALCET 30 MG TABLET PO SCH (09:55)
[2019-01-01] MEDS: CHOLECALCIFEROL 1,000 UNIT TABLET PO SCH (09:56)
[2019-01-01] MEDS: LEVOTHYROXINE 75 MCG TABLET PO SCH (09:57)
[2019-01-01] MEDS: CALCIUM ACETATE 667 MG CAPSULE PO SCH ×3 (09:58→18:34)
[2019-01-01] MEDS: METOPROLOL TARTRATE 25 MG TABLET PO SCH ×2 (09:58→21:27)
[2019-01-01] MEDS: MULTIVITS,STRESS FORMULA 1 TABLET PO SCH (09:58)
[2019-01-01] MEDS: ISOSORBIDE MONONITRATE ER 30 MG TABLET PO SCH (09:59)
--- NOTE | 2019-01-01 16:56 | NUR ---
REC: chopped diet with NTL with 1:1 assistance; orange sheet posted in room with swallowing precautions Addendum: 01/01/19 at 1656 by Deana GLORIA Amended: Links added.
[2019-01-01] MEDS: ATORVASTATIN 10 MG TABLET PO SCH (21:26)
[2019-01-02 03:32] VITALS: BP 161/76
[2019-01-02] MEDS: ASPIRIN 325 MG TABLET PO SCH (05:15)
[2019-01-02] MEDS: HEPARIN 5,000 UNITS/ML, 1ML SQ SCH ×3 (05:15→21:55)
[2019-01-02 06:49] VITALS: BP 153/71
[2019-01-02 07:52] LABS: MEAN CORPUSCULAR HEMOGLOBIN 31.7 pg (27.5-34.5); MEAN CORPUSCULAR HGB CONC 32.8 g/dL (33.2-36.2); MEAN CORPUSCULAR VOLUME 96.4 fL (81-97); MEAN PLATELET VOLUME 8.1 fL (7.4-10.4); PLATELET COUNT 87 x10^3/uL (130-400); RED BLOOD COUNT 3.56 x10^6/uL (4.38-5.82); RED CELL DISTRIBUTION WIDTH 17.5 % (9.4-14.8)
[2019-01-02 08:02] LABS: ALBUMIN 2.5 g/dL (3.4-5.0); ANION GAP 6 mmol/L (5-15); CALCIUM 9.6 mg/dL (8.5-10.1); CHLORIDE 101 mmol/L (98-107); CREATININE 6.67 mg/dL (0.7-1.3)
[2019-01-02 09:49] LABS: BASOPHILS % (AUTO) 0 % (0-1); EOSINOPHILS # (AUTO) 0.54 x10^3/uL (0-0.4); EOSINOPHILS % (AUTO) 5 % (1-7); LYMPHOCYTES # (AUTO) 0.38 x10^3/uL (1-3.4); LYMPHOCYTES % (AUTO) 4 % (22-44); MD SCAN; MONOCYTES # (AUTO) 0.53 x10^3/uL (0.2-0.8); MONOCYTES % (AUTO) 5 % (2-9); NEUTROPHILS # (AUTO) 8.96 x10^3/uL (1.8-6.8); NEUTROPHILS % (AUTO) 86 % (42-75)
[2019-01-02 09:55] LABS: ABSOLUTE RETICS # 0.051 x10^6/uL (0.5-1.5); RED BLOOD COUNT 3.66 x10^6/uL (4.38-5.82); RETICULOCYTE COUNT % 1.4 % (0.5-1.5)
[2019-01-02] MEDS: METOPROLOL TARTRATE 25 MG TABLET PO SCH ×2 (10:24→20:52)
[2019-01-02] MEDS: ISOSORBIDE MONONITRATE ER 30 MG TABLET PO SCH (10:26)
[2019-01-02] MEDS: LEVOTHYROXINE 75 MCG TABLET PO SCH (10:27)
[2019-01-02] MEDS: CALCIUM ACETATE 667 MG CAPSULE PO SCH ×3 (10:28→17:00)
[2019-01-02] MEDS: CINACALCET 30 MG TABLET PO SCH (10:30)
[2019-01-02] MEDS: MULTIVITS,STRESS FORMULA 1 TABLET PO SCH (10:31)
[2019-01-02] MEDS: CHOLECALCIFEROL 1,000 UNIT TABLET PO SCH (10:32)
[2019-01-02 13:33] VITALS: BP 160/73
[2019-01-02 17:51] VITALS: BP 118/74
[2019-01-02] MEDS ORDERED: SODIUM CHLORIDE 0.9%, 250ML IVBOLUS ONE (19:00)
[2019-01-02 20:00] VITALS: BP 76/46
[2019-01-02] MEDS ORDERED: morphine SULFATE 10 MG/ML, 1ML ONE (20:15)
[2019-01-02] MEDS ORDERED: MORPHINE SULFATE 4 MG/ML, 1ML IVPush ONE (20:30)
[2019-01-02] MEDS: ATORVASTATIN 10 MG TABLET PO SCH (20:51)
[2019-01-02] MEDS ORDERED: AMIODARONE 50 MG/ML, 3ML IVPush ONE (21:00)
[2019-01-02] MEDS ORDERED: morphine SULFATE/PF 0.5 MG/ML, 10ML IV PRN (21:00)
[2019-01-02] MEDS ORDERED: SODIUM CHLORIDE 0.9% 1,000ML IVBOLUS ONE (21:00)
[2019-01-02] MEDS ORDERED: LORazepam 2 MG/ML, 1ML IVPush PRN (21:00)
[2019-01-02] MEDS ORDERED: FILTER 0.22 MICRON IV PRN (21:00)
[2019-01-02 23:20] VITALS: BP 93/53
[2019-01-03 05:37] LABS: MEAN CORPUSCULAR HEMOGLOBIN 32.1 pg (27.5-34.5); MEAN CORPUSCULAR HGB CONC 33.4 g/dL (33.2-36.2); MEAN CORPUSCULAR VOLUME 96.1 fL (81-97); MEAN PLATELET VOLUME 8.9 fL (7.4-10.4); PLATELET COUNT 109 x10^3/uL (130-400); RED BLOOD COUNT 3.35 x10^6/uL (4.38-5.82); RED CELL DISTRIBUTION WIDTH 17.3 % (9.4-14.8)
[2019-01-03 05:43] LABS: CHLORIDE 103 mmol/L (98-107)
[2019-01-03 05:50] LABS: ALANINE AMINOTRANSFERASE 36 U/L (12-78); ALBUMIN 2.3 g/dL (3.4-5.0); ALKALINE PHOSPHATASE 203 U/L (45-117); ANION GAP 10 mmol/L (5-15); BILIRUBIN,TOTAL 1.2 mg/dL (0.2-1.0); CALCIUM 9.8 mg/dL (8.5-10.1); CREATININE 4.52 mg/dL (0.7-1.3); TOTAL PROTEIN 7.4 g/dL (6.4-8.2)
[2019-01-03 06:05] LABS: BASOPHILS # (AUTO) 0.01 x10^3/uL (0-0.1); BASOPHILS % (AUTO) 0 % (0-1); EOSINOPHILS % (AUTO) 0 % (1-7); LYMPHOCYTES # (AUTO) 0.63 x10^3/uL (1-3.4); LYMPHOCYTES % (AUTO) 4 % (22-44); MD SCAN; MONOCYTES # (AUTO) 0.98 x10^3/uL (0.2-0.8); MONOCYTES % (AUTO) 7 % (2-9); NEUTROPHILS # (AUTO) 13.03 x10^3/uL (1.8-6.8); NEUTROPHILS % (AUTO) 89 % (42-75)
[2019-01-03] MEDS: HEPARIN 5,000 UNITS/ML, 1ML SQ SCH ×3 (06:12→22:00)
[2019-01-03] MEDS: ASPIRIN 325 MG TABLET PO SCH (06:12)
[2019-01-03] MEDS: CALCIUM ACETATE 667 MG CAPSULE PO SCH ×3 (08:00→17:08)
[2019-01-03] MEDS: METOPROLOL TARTRATE 25 MG TABLET PO SCH ×2 (09:00→11:14)
[2019-01-03] MEDS: CHOLECALCIFEROL 1,000 UNIT TABLET PO SCH (09:00)
[2019-01-03] MEDS: CINACALCET 30 MG TABLET PO SCH (09:00)
[2019-01-03] MEDS: MULTIVITS,STRESS FORMULA 1 TABLET PO SCH (09:00)
[2019-01-03] MEDS: ISOSORBIDE MONONITRATE ER 30 MG TABLET PO SCH (09:00)
[2019-01-03 09:48] VITALS: BP 97/55
[2019-01-03] MEDS: LEVOTHYROXINE 75 MCG TABLET PO SCH (11:16)
[2019-01-03] MEDS ORDERED: MORPHINE SULFATE 4 MG/ML, 1ML IVPush PRN (14:00)
[2019-01-03 14:47] VITALS: BP 115/74
--- NOTE | 2019-01-03 15:24 | NUR ---
REC AGNESE/NTL; swallow precautions sheet to be posted at bedside tomorrow AM Addendum: 01/03/19 at [address] Amended: Links added.
[2019-01-03] MEDS ORDERED: FUROSEMIDE 20 MG/2 ML IV ONE (16:00)
[2019-01-03] MEDS: AMIODARONE 200 MG TABLET PO SCH ×2 (17:04→20:03)
[2019-01-03] MEDS: PANTOPRAZOLE 20MG TABLET PO SCH (17:05)
[2019-01-03 17:08] VITALS: BP 103/66
[2019-01-03 18:52] VITALS: BP 91/51
[2019-01-03] MEDS: CLINDAMYCIN PMX 600MG/50ML 50 ML IV SCH (19:38)
[2019-01-03] MEDS: ATORVASTATIN 10 MG TABLET PO SCH (20:04)
[2019-01-04] MEDS: PANTOPRAZOLE 20MG TABLET PO SCH ×2 (00:27→12:26)
[2019-01-04] MEDS: CLINDAMYCIN PMX 600MG/50ML 50 ML IV SCH (02:35)
[2019-01-04 02:39] VITALS: BP 94/59
[2019-01-04] MEDS: LEVOTHYROXINE 75 MCG TABLET PO SCH (05:43)
[2019-01-04] MEDS: HEPARIN 5,000 UNITS/ML, 1ML SQ SCH ×3 (05:43→21:23)
[2019-01-04] MEDS: ASPIRIN 325 MG TABLET PO SCH (05:43)
[2019-01-04 06:10] LABS: MEAN CORPUSCULAR HEMOGLOBIN 32.2 pg (27.5-34.5); MEAN CORPUSCULAR HGB CONC 33.5 g/dL (33.2-36.2); MEAN CORPUSCULAR VOLUME 96.1 fL (81-97); PLATELET COUNT 114 x10^3/uL (130-400); RED BLOOD COUNT 3.33 x10^6/uL (4.38-5.82); RED CELL DISTRIBUTION WIDTH 17.7 % (9.4-14.8)
[2019-01-04 06:12] LABS: ALBUMIN 2.2 g/dL (3.4-5.0); ANION GAP 7 mmol/L (5-15); CALCIUM 10.3 mg/dL (8.5-10.1); CHLORIDE 104 mmol/L (98-107); CREATININE 6.28 mg/dL (0.7-1.3)
[2019-01-04] MEDS ORDERED: PHARMACOKINETIC CONSULTATION MC ONE (06:30)
[2019-01-04] MEDS ORDERED: VANCOMYCIN PER PHARMACY MC PRN (06:30)
[2019-01-04] MEDS ORDERED: PHARMACOKINETIC MONITORING MC PRN (06:30)
[2019-01-04] MEDS ORDERED: VANCOMYCIN 1,200 MG in SODIUM CHLORIDE 0.9% 250 ML IV ONE (06:30)
[2019-01-04 06:35] LABS: BASOPHILS # (AUTO) 0.02 x10^3/uL (0-0.1); BASOPHILS % (AUTO) 0 % (0-1); EOSINOPHILS # (AUTO) 0.31 x10^3/uL (0-0.4); EOSINOPHILS % (AUTO) 3 % (1-7); LYMPHOCYTES # (AUTO) 0.54 x10^3/uL (1-3.4); LYMPHOCYTES % (AUTO) 5 % (22-44); MD SCAN; MONOCYTES # (AUTO) 0.66 x10^3/uL (0.2-0.8); MONOCYTES % (AUTO) 6 % (2-9); NEUTROPHILS # (AUTO) 10.02 x10^3/uL (1.8-6.8); NEUTROPHILS % (AUTO) 87 % (42-75)
[2019-01-04 06:40] VITALS: BP 80/50
[2019-01-04] MEDS: CALCIUM ACETATE 667 MG CAPSULE PO SCH ×3 (08:00→17:00)
[2019-01-04 08:58] VITALS: BP 98/58
[2019-01-04] MEDS: METOPROLOL TARTRATE 25 MG TABLET PO SCH ×2 (09:00→21:22)
[2019-01-04] MEDS: MULTIVITS,STRESS FORMULA 1 TABLET PO SCH (09:00)
[2019-01-04] MEDS: ISOSORBIDE MONONITRATE ER 30 MG TABLET PO SCH (09:00)
[2019-01-04] MEDS: CINACALCET 30 MG TABLET PO SCH (09:00)
[2019-01-04] MEDS: AMIODARONE 200 MG TABLET PO SCH ×2 (09:00→21:21)
[2019-01-04] MEDS: CHOLECALCIFEROL 1,000 UNIT TABLET PO SCH (09:00)
[2019-01-04 13:36] VITALS: BP 83/46
[2019-01-04] MEDS ORDERED: SODIUM CHLORIDE 0.9%, 250ML IVBOLUS ONE (14:00)
[2019-01-04] MEDS ORDERED: METOPROLOL TARTRATE 25 MG TABLET PO ONE (14:00)
[2019-01-04 20:00] VITALS: BP 94/55
[2019-01-04] MEDS: ATORVASTATIN 10 MG TABLET PO SCH (21:21)
[2019-01-05] MEDS: PANTOPRAZOLE 20MG TABLET PO SCH ×2 (00:52→14:12)
[2019-01-05 02:02] VITALS: BP 88/56
[2019-01-05 05:04] LABS: ANION GAP 8 mmol/L (5-15); CALCIUM 10.2 mg/dL (8.5-10.1); CHLORIDE 101 mmol/L (98-107)
[2019-01-05 05:09] LABS: ALANINE AMINOTRANSFERASE 70 U/L (12-78); ALKALINE PHOSPHATASE 220 U/L (45-117); BILIRUBIN,TOTAL 1.8 mg/dL (0.2-1.0); CREATININE 4.61 mg/dL (0.7-1.3); TOTAL PROTEIN 7.3 g/dL (6.4-8.2)
[2019-01-05 05:10] LABS: MEAN CORPUSCULAR HEMOGLOBIN 31.6 pg (27.5-34.5); MEAN CORPUSCULAR HGB CONC 32.5 g/dL (33.2-36.2); MEAN CORPUSCULAR VOLUME 97.3 fL (81-97); PLATELET COUNT 97 x10^3/uL (130-400); RED BLOOD COUNT 3.11 x10^6/uL (4.38-5.82)
[2019-01-05 05:42] LABS: BASOPHILS % (AUTO) 0 % (0-1); EOSINOPHILS % (AUTO) 5 % (1-7); LYMPHOCYTES # (AUTO) 0.41 x10^3/uL (1-3.4); LYMPHOCYTES % (AUTO) 5 % (22-44); MD SCAN; MONOCYTES # (AUTO) 0.56 x10^3/uL (0.2-0.8); MONOCYTES % (AUTO) 7 % (2-9); NEUTROPHILS # (AUTO) 6.54 x10^3/uL (1.8-6.8); NEUTROPHILS % (AUTO) 83 % (42-75)
[2019-01-05] MEDS: LEVOTHYROXINE 75 MCG TABLET PO SCH (05:49)
[2019-01-05] MEDS: ASPIRIN 325 MG TABLET PO SCH (05:49)
[2019-01-05] MEDS: HEPARIN 5,000 UNITS/ML, 1ML SQ SCH ×3 (05:49→22:20)
[2019-01-05 09:12] VITALS: BP 98/63
[2019-01-05] MEDS: CALCIUM ACETATE 667 MG CAPSULE PO SCH ×3 (09:14→17:14)
[2019-01-05] MEDS: MULTIVITS,STRESS FORMULA 1 TABLET PO SCH (09:16)
[2019-01-05] MEDS: CHOLECALCIFEROL 1,000 UNIT TABLET PO SCH (09:16)
[2019-01-05] MEDS: AMIODARONE 200 MG TABLET PO SCH ×2 (09:18→20:14)
[2019-01-05] MEDS: ISOSORBIDE MONONITRATE ER 30 MG TABLET PO SCH (13:00)
[2019-01-05] MEDS: METOPROLOL TARTRATE 25 MG TABLET PO SCH ×2 (13:00→20:15)
[2019-01-05 14:07] VITALS: BP 90/54
[2019-01-05] MEDS: CINACALCET 30 MG TABLET PO SCH (14:11)
[2019-01-05 20:00] VITALS: BP 103/69
[2019-01-05] MEDS: ATORVASTATIN 10 MG TABLET PO SCH (20:13)
[2019-01-06 02:00] VITALS: BP 115/66
[2019-01-06] MEDS: PANTOPRAZOLE 20MG TABLET PO SCH ×3 (02:00→22:05)
[2019-01-06] MEDS: HEPARIN 5,000 UNITS/ML, 1ML SQ SCH ×3 (05:54→21:56)
[2019-01-06] MEDS: ASPIRIN 325 MG TABLET PO SCH (05:54)
[2019-01-06] MEDS: LEVOTHYROXINE 75 MCG TABLET PO SCH (05:54)
[2019-01-06 07:47] VITALS: BP 106/71
[2019-01-06] MEDS: CALCIUM ACETATE 667 MG CAPSULE PO SCH ×3 (08:51→17:51)
[2019-01-06] MEDS: METOPROLOL TARTRATE 25 MG TABLET PO SCH ×2 (08:53→21:56)
[2019-01-06] MEDS: CINACALCET 30 MG TABLET PO SCH (08:53)
[2019-01-06] MEDS: AMIODARONE 200 MG TABLET PO SCH ×2 (08:53→21:56)
[2019-01-06 08:55] LABS: ALANINE AMINOTRANSFERASE 70 U/L (12-78); ALBUMIN 1.8 g/dL (3.4-5.0); ANION GAP 6 mmol/L (5-15); CALCIUM 10.2 mg/dL (8.5-10.1); CHLORIDE 99 mmol/L (98-107); CREATININE 3.64 mg/dL (0.7-1.3)
[2019-01-06 08:57] LABS: ALKALINE PHOSPHATASE 251 U/L (45-117); BILIRUBIN,TOTAL 1.8 mg/dL (0.2-1.0); TOTAL PROTEIN 7.3 g/dL (6.4-8.2)
[2019-01-06] MEDS: CHOLECALCIFEROL 1,000 UNIT TABLET PO SCH (08:57)
[2019-01-06] MEDS: MULTIVITS,STRESS FORMULA 1 TABLET PO SCH (08:58)
[2019-01-06 09:04] LABS: VANCOMYCIN,RANDOM 8.7 mcg/mL
[2019-01-06 09:16] LABS: MEAN CORPUSCULAR HEMOGLOBIN 31.2 pg (27.5-34.5); MEAN CORPUSCULAR HGB CONC 32.8 g/dL (33.2-36.2); MEAN CORPUSCULAR VOLUME 95.1 fL (81-97); MEAN PLATELET VOLUME 9.5 fL (7.4-10.4); PLATELET COUNT 111 x10^3/uL (130-400); RED BLOOD COUNT 2.92 x10^6/uL (4.38-5.82); RED CELL DISTRIBUTION WIDTH 17.4 % (9.4-14.8)
[2019-01-06 09:46] LABS: BASOPHILS # (AUTO) 0.01 x10^3/uL (0-0.1); BASOPHILS % (AUTO) 0 % (0-1); EOSINOPHILS # (AUTO) 0.52 x10^3/uL (0-0.4); EOSINOPHILS % (AUTO) 8 % (1-7); LYMPHOCYTES # (AUTO) 0.36 x10^3/uL (1-3.4); LYMPHOCYTES % (AUTO) 6 % (22-44); MD SCAN; MONOCYTES # (AUTO) 0.28 x10^3/uL (0.2-0.8); MONOCYTES % (AUTO) 4 % (2-9); NEUTROPHILS # (AUTO) 5.37 x10^3/uL (1.8-6.8); NEUTROPHILS % (AUTO) 82 % (42-75)
[2019-01-06 10:58] VITALS: BP 110/68
[2019-01-06] MEDS: CEFAZOLIN 2,000 MG in SODIUM CHLORIDE 0.9% 50 ML IV SCH ×2 (11:00→23:00)
[2019-01-06] MEDS: ISOSORBIDE MONONITRATE ER 30 MG TABLET PO SCH (11:00)
[2019-01-06] MEDS ORDERED: DOCUSATE 100 MG CAPSULE PO PRN (12:00)
[2019-01-06] MEDS ORDERED: POLYETHYLENE GLYCOL 17 GM PACKET PO PRN (12:00)
[2019-01-06 13:04] VITALS: BP 99/63
[2019-01-06 19:57] VITALS: BP 107/56
[2019-01-06] MEDS: ATORVASTATIN 10 MG TABLET PO SCH (21:55)
[2019-01-07 02:00] VITALS: BP 100/66
[2019-01-07] MEDS ORDERED: CEPHALEXIN 250 MG CAPSULE PO ONE (03:14)
[2019-01-07] MEDS: CEFAZOLIN 2,000 MG in SODIUM CHLORIDE 0.9% 50 ML IV SCH ×2 (04:02→16:49)
[2019-01-07 05:06] LABS: ALBUMIN 1.7 g/dL (3.4-5.0); ANION GAP 9 mmol/L (5-15); CHLORIDE 100 mmol/L (98-107)
[2019-01-07 05:08] LABS: CREATININE 4.85 mg/dL (0.7-1.3)
[2019-01-07] MEDS: ASPIRIN 325 MG TABLET PO SCH (06:12)
[2019-01-07] MEDS: LEVOTHYROXINE 75 MCG TABLET PO SCH (06:12)
[2019-01-07] MEDS: HEPARIN 5,000 UNITS/ML, 1ML SQ SCH ×3 (06:13→21:24)
[2019-01-07 07:42] VITALS: BP 93/41
[2019-01-07] MEDS: CALCIUM ACETATE 667 MG CAPSULE PO SCH ×3 (12:00→16:49)
[2019-01-07 12:40] VITALS: BP 97/62
[2019-01-07] MEDS: CHOLECALCIFEROL 1,000 UNIT TABLET PO SCH (13:38)
[2019-01-07] MEDS: ISOSORBIDE MONONITRATE ER 30 MG TABLET PO SCH (13:38)
[2019-01-07] MEDS: AMIODARONE 200 MG TABLET PO SCH ×2 (13:39→21:24)
[2019-01-07] MEDS: METOPROLOL TARTRATE 25 MG TABLET PO SCH ×2 (13:39→21:24)
[2019-01-07] MEDS: CINACALCET 30 MG TABLET PO SCH (13:39)
[2019-01-07] MEDS: MULTIVITS,STRESS FORMULA 1 TABLET PO SCH (13:45)
[2019-01-07] MEDS: PANTOPRAZOLE 20MG TABLET PO SCH ×2 (13:45→21:24)
[2019-01-07 18:48] VITALS: BP 92/63
[2019-01-07 21:16] VITALS: BP 111/63
[2019-01-07] MEDS: ATORVASTATIN 10 MG TABLET PO SCH (21:24)
[2019-01-08 01:10] VITALS: BP 148/66
[2019-01-08] MEDS: CEFAZOLIN 2,000 MG in SODIUM CHLORIDE 0.9% 50 ML IV SCH ×2 (04:39→15:45)
[2019-01-08] MEDS: LEVOTHYROXINE 75 MCG TABLET PO SCH (05:28)
[2019-01-08] MEDS: HEPARIN 5,000 UNITS/ML, 1ML SQ SCH ×4 (05:28→23:29)
[2019-01-08] MEDS: ASPIRIN 325 MG TABLET PO SCH (05:28)
[2019-01-08 05:59] LABS: BASOPHILS # (AUTO) 0.06 x10^3/uL (0-0.1); BASOPHILS % (AUTO) 1 % (0-1); EOSINOPHILS # (AUTO) 0.54 x10^3/uL (0-0.4); EOSINOPHILS % (AUTO) 7 % (1-7); LYMPHOCYTES # (AUTO) 0.48 x10^3/uL (1-3.4); LYMPHOCYTES % (AUTO) 6 % (22-44); MD NO; MEAN CORPUSCULAR HEMOGLOBIN 31.2 pg (27.5-34.5); MEAN CORPUSCULAR HGB CONC 32.9 g/dL (33.2-36.2); MEAN PLATELET VOLUME 8.9 fL (7.4-10.4); MONOCYTES # (AUTO) 0.42 x10^3/uL (0.2-0.8); MONOCYTES % (AUTO) 5 % (2-9); NEUTROPHILS # (AUTO) 6.28 x10^3/uL (1.8-6.8); NEUTROPHILS % (AUTO) 81 % (42-75); PLATELET COUNT 146 x10^3/uL (130-400); RED BLOOD COUNT 3.17 x10^6/uL (4.38-5.82); RED CELL DISTRIBUTION WIDTH 17.7 % (9.4-14.8)
[2019-01-08 06:12] LABS: ALBUMIN 1.8 g/dL (3.4-5.0); ANION GAP 9 mmol/L (5-15); CALCIUM 10.3 mg/dL (8.5-10.1); CHLORIDE 102 mmol/L (98-107)
[2019-01-08 06:16] LABS: ALANINE AMINOTRANSFERASE 15 U/L (12-78); ALKALINE PHOSPHATASE 308 U/L (45-117); BILIRUBIN,TOTAL 1.8 mg/dL (0.2-1.0); CREATININE 3.56 mg/dL (0.7-1.3); TOTAL PROTEIN 7.8 g/dL (6.4-8.2)
[2019-01-08 09:04] VITALS: BP 142/54
[2019-01-08] MEDS: CHOLECALCIFEROL 1,000 UNIT TABLET PO SCH (09:35)
[2019-01-08] MEDS: MULTIVITS,STRESS FORMULA 1 TABLET PO SCH (09:35)
[2019-01-08] MEDS: METOPROLOL TARTRATE 25 MG TABLET PO SCH ×2 (09:36→21:41)
[2019-01-08] MEDS: AMIODARONE 200 MG TABLET PO SCH ×2 (09:43→21:41)
[2019-01-08] MEDS: ISOSORBIDE MONONITRATE ER 30 MG TABLET PO SCH (09:45)
[2019-01-08] MEDS: PANTOPRAZOLE 20MG TABLET PO SCH ×2 (09:46→21:41)
[2019-01-08] MEDS: CINACALCET 30 MG TABLET PO SCH (09:47)
[2019-01-08] MEDS: CALCIUM ACETATE 667 MG CAPSULE PO SCH ×3 (09:48→18:27)
[2019-01-08 15:19] VITALS: BP 99/48
[2019-01-08 15:28] VITALS: BP_SYST 101; BP_SYST 121; BP_DIAS 38; BP_DIAS 61
[2019-01-08 18:57] VITALS: BP 132/62
[2019-01-08 21:38] VITALS: BP 123/66
[2019-01-08] MEDS: ATORVASTATIN 10 MG TABLET PO SCH (21:41)
[2019-01-09 01:34] VITALS: BP 137/63
[2019-01-09] MEDS: CEFAZOLIN 2,000 MG in SODIUM CHLORIDE 0.9% 50 ML IV SCH (04:10)
[2019-01-09] MEDS: LEVOTHYROXINE 75 MCG TABLET PO SCH (06:19)
[2019-01-09] MEDS: ASPIRIN 325 MG TABLET PO SCH (06:19)
[2019-01-09] MEDS: CALCIUM ACETATE 667 MG CAPSULE PO SCH ×3 (08:00→17:42)
[2019-01-09] MEDS: ISOSORBIDE MONONITRATE ER 30 MG TABLET PO SCH (12:40)
[2019-01-09] MEDS ORDERED: SODIUM CHLORIDE 0.9%, 250ML IVBOLUS ONE (13:30)
[2019-01-09] MEDS: AMIODARONE 200 MG TABLET PO SCH (13:36)
[2019-01-09] MEDS: PANTOPRAZOLE 20MG TABLET PO SCH ×2 (13:47→22:04)
[2019-01-09] MEDS: CINACALCET 30 MG TABLET PO SCH (13:47)
[2019-01-09] MEDS: MULTIVITS,STRESS FORMULA 1 TABLET PO SCH (13:50)
[2019-01-09] MEDS: HEPARIN 5,000 UNITS/ML, 1ML SQ SCH ×2 (13:50→22:04)
[2019-01-09] MEDS: CHOLECALCIFEROL 1,000 UNIT TABLET PO SCH (13:50)
[2019-01-09 15:28] VITALS: BP 104/69
[2019-01-09] MEDS: METOPROLOL TARTRATE 25 MG TABLET PO SCH (15:31)
[2019-01-09] MEDS ORDERED: CEFAZOLIN 3,000 MG in SODIUM CHLORIDE 0.9% 50 ML IV SCH (18:00)
[2019-01-09 18:43] VITALS: BP 138/68
[2019-01-09 21:35] VITALS: BP 125/59
[2019-01-09] MEDS: ATORVASTATIN 10 MG TABLET PO SCH (22:04)
[2019-01-10 00:35] VITALS: BP 130/74
[2019-01-10] MEDS: LEVOTHYROXINE 75 MCG TABLET PO SCH (05:13)
[2019-01-10] MEDS: HEPARIN 5,000 UNITS/ML, 1ML SQ SCH ×3 (05:13→21:10)
[2019-01-10] MEDS: ASPIRIN 325 MG TABLET PO SCH (05:13)
[2019-01-10 06:41] LABS: ALBUMIN 1.6 g/dL (3.4-5.0); ANION GAP 10 mmol/L (5-15); CALCIUM 10.2 mg/dL (8.5-10.1); CHLORIDE 101 mmol/L (98-107)
[2019-01-10 06:42] LABS: CREATININE 3.49 mg/dL (0.7-1.3)
[2019-01-10 08:03] VITALS: BP 119/69
[2019-01-10] MEDS ORDERED: ARANESP 40 MCG/ML **ESRD SQ SCH (09:00)
[2019-01-10] MEDS: AMIODARONE 200 MG TABLET PO SCH ×2 (09:54→21:09)
[2019-01-10] MEDS: CHOLECALCIFEROL 1,000 UNIT TABLET PO SCH (09:57)
[2019-01-10] MEDS: CINACALCET 30 MG TABLET PO SCH (09:57)
[2019-01-10] MEDS: ISOSORBIDE MONONITRATE ER 30 MG TABLET PO SCH (09:58)
[2019-01-10] MEDS: MULTIVITS,STRESS FORMULA 1 TABLET PO SCH (09:58)
[2019-01-10] MEDS: CALCIUM ACETATE 667 MG CAPSULE PO SCH ×3 (09:59→17:53)
[2019-01-10] MEDS: PANTOPRAZOLE 20MG TABLET PO SCH ×2 (09:59→21:00)
[2019-01-10] MEDS: METOPROLOL TARTRATE 25 MG TABLET PO SCH ×2 (11:49→21:10)
[2019-01-10 14:58] VITALS: BP 115/62
[2019-01-10 19:40] VITALS: BP 105/65
[2019-01-10] MEDS: ATORVASTATIN 10 MG TABLET PO SCH (21:10)
[2019-01-11 02:26] VITALS: BP 99/58
[2019-01-11 06:08] LABS: BASOPHILS # (AUTO) 0.02 x10^3/uL (0-0.1); BASOPHILS % (AUTO) 0 % (0-1); EOSINOPHILS # (AUTO) 0.32 x10^3/uL (0-0.4); EOSINOPHILS % (AUTO) 5 % (1-7); LYMPHOCYTES # (AUTO) 0.62 x10^3/uL (1-3.4); LYMPHOCYTES % (AUTO) 10 % (22-44); MD NO; MEAN CORPUSCULAR HEMOGLOBIN 31.9 pg (27.5-34.5); MEAN CORPUSCULAR HGB CONC 34.3 g/dL (33.2-36.2); MEAN CORPUSCULAR VOLUME 93.1 fL (81-97); MEAN PLATELET VOLUME 8.8 fL (7.4-10.4); MONOCYTES # (AUTO) 0.33 x10^3/uL (0.2-0.8); MONOCYTES % (AUTO) 5 % (2-9); NEUTROPHILS # (AUTO) 4.88 x10^3/uL (1.8-6.8); NEUTROPHILS % (AUTO) 79 % (42-75); PLATELET COUNT 156 x10^3/uL (130-400); RED BLOOD COUNT 2.57 x10^6/uL (4.38-5.82); RED CELL DISTRIBUTION WIDTH 17.9 % (9.4-14.8)
[2019-01-11 06:14] LABS: CHLORIDE 101 mmol/L (98-107)
[2019-01-11] MEDS: ASPIRIN 325 MG TABLET PO SCH (06:14)
[2019-01-11] MEDS: LEVOTHYROXINE 75 MCG TABLET PO SCH (06:14)
[2019-01-11] MEDS: HEPARIN 5,000 UNITS/ML, 1ML SQ SCH ×3 (06:14→20:58)
[2019-01-11 06:21] LABS: HCT (SEDRATE) 23.9 % (39.2-51.8)
[2019-01-11 06:32] LABS: ALBUMIN 1.6 g/dL (3.4-5.0); ALKALINE PHOSPHATASE 357 U/L (45-117); ANION GAP 10 mmol/L (5-15); BILIRUBIN,TOTAL 1.2 mg/dL (0.2-1.0); CALCIUM 10.2 mg/dL (8.5-10.1); CREATININE 4.87 mg/dL (0.7-1.3); TOTAL PROTEIN 7.1 g/dL (6.4-8.2)
[2019-01-11 06:36] LABS: SEDIMENTATION RATE > 120 mm/hr (0-10)
[2019-01-11 06:38] VITALS: BP 88/40
[2019-01-11 06:49] LABS: ALANINE AMINOTRANSFERASE < 6 U/L (12-78)
[2019-01-11 06:57] VITALS: BP 97/59
[2019-01-11] MEDS: AMIODARONE 200 MG TABLET PO SCH ×3 (07:44→20:50)
[2019-01-11] MEDS: METOPROLOL TARTRATE 25 MG TABLET PO SCH ×2 (07:45→20:51)
[2019-01-11] MEDS: ISOSORBIDE MONONITRATE ER 30 MG TABLET PO SCH (08:07)
[2019-01-11] MEDS: PANTOPRAZOLE 20MG TABLET PO SCH ×2 (08:20→20:52)
[2019-01-11] MEDS: MULTIVITS,STRESS FORMULA 1 TABLET PO SCH (08:20)
[2019-01-11] MEDS: CINACALCET 30 MG TABLET PO SCH (08:21)
[2019-01-11] MEDS: CALCIUM ACETATE 667 MG CAPSULE PO SCH ×3 (08:21→17:15)
[2019-01-11] MEDS: CHOLECALCIFEROL 1,000 UNIT TABLET PO SCH (08:21)
[2019-01-11] MEDS ORDERED: SODIUM CHLORIDE 0.9%, 250ML IVBOLUS ONE (08:30)
[2019-01-11 14:57] VITALS: BP 111/44
[2019-01-11 19:15] VITALS: BP 124/68
[2019-01-11] MEDS: ATORVASTATIN 10 MG TABLET PO SCH (20:50)
[2019-01-12 02:35] VITALS: BP 130/66
[2019-01-12] MEDS: LEVOTHYROXINE 75 MCG TABLET PO SCH (05:52)
[2019-01-12] MEDS: ASPIRIN 325 MG TABLET PO SCH (05:52)
[2019-01-12] MEDS: HEPARIN 5,000 UNITS/ML, 1ML SQ SCH ×2 (05:53→17:13)
[2019-01-12 06:57] VITALS: BP 82/57
[2019-01-12] MEDS: METOPROLOL TARTRATE 25 MG TABLET PO SCH ×2 (08:17→20:57)
[2019-01-12] MEDS: ISOSORBIDE MONONITRATE ER 30 MG TABLET PO SCH (08:17)
[2019-01-12] MEDS: MULTIVITS,STRESS FORMULA 1 TABLET PO SCH (09:16)
[2019-01-12] MEDS: AMIODARONE 200 MG TABLET PO SCH ×2 (09:16→20:56)
[2019-01-12] MEDS: CINACALCET 30 MG TABLET PO SCH (09:16)
[2019-01-12] MEDS: PANTOPRAZOLE 20MG TABLET PO SCH ×2 (09:16→20:58)
[2019-01-12] MEDS: CALCIUM ACETATE 667 MG CAPSULE PO SCH ×3 (09:16→18:12)
[2019-01-12] MEDS: CHOLECALCIFEROL 1,000 UNIT TABLET PO SCH (09:17)
[2019-01-12 16:30] VITALS: BP 130/55
[2019-01-12] MEDS ORDERED: CEFAZOLIN 2,000 MG in SODIUM CHLORIDE 0.9% 50 ML IV SCH (18:00)
[2019-01-12 19:02] VITALS: BP 112/57
[2019-01-12] MEDS: ATORVASTATIN 10 MG TABLET PO SCH (20:55)
[2019-01-13] MEDS: HEPARIN 5,000 UNITS/ML, 1ML SQ SCH ×3 (00:22→20:27)
[2019-01-13 03:03] VITALS: BP 98/58
[2019-01-13] MEDS: ASPIRIN 325 MG TABLET PO SCH (05:54)
[2019-01-13] MEDS: LEVOTHYROXINE 75 MCG TABLET PO SCH (05:54)
[2019-01-13 06:39] VITALS: BP 124/68
[2019-01-13 07:14] LABS: MEAN CORPUSCULAR HEMOGLOBIN 30.7 pg (27.5-34.5); MEAN CORPUSCULAR HGB CONC 32.8 g/dL (33.2-36.2); MEAN CORPUSCULAR VOLUME 93.9 fL (81-97); MEAN PLATELET VOLUME 8.5 fL (7.4-10.4); PLATELET COUNT 172 x10^3/uL (130-400); RED BLOOD COUNT 2.51 x10^6/uL (4.38-5.82); RED CELL DISTRIBUTION WIDTH 18.7 % (9.4-14.8)
[2019-01-13 07:20] LABS: ALBUMIN 1.5 g/dL (3.4-5.0); ANION GAP 9 mmol/L (5-15); CALCIUM 10.4 mg/dL (8.5-10.1); CHLORIDE 102 mmol/L (98-107); CREATININE 3.85 mg/dL (0.7-1.3)
[2019-01-13 07:21] LABS: ALANINE AMINOTRANSFERASE < 6 U/L (12-78)
[2019-01-13 07:22] LABS: ALKALINE PHOSPHATASE 546 U/L (45-117); BILIRUBIN,TOTAL 1.1 mg/dL (0.2-1.0); TOTAL PROTEIN 7.3 g/dL (6.4-8.2)
[2019-01-13 07:58] LABS: BASOPHILS # (AUTO) 0.02 x10^3/uL (0-0.1); BASOPHILS % (AUTO) 0 % (0-1); EOSINOPHILS # (AUTO) 0.24 x10^3/uL (0-0.4); EOSINOPHILS % (AUTO) 3 % (1-7); LYMPHOCYTES # (AUTO) 0.69 x10^3/uL (1-3.4); LYMPHOCYTES % (AUTO) 9 % (22-44); MD MORPH REVIEW ONLY; MONOCYTES # (AUTO) 0.42 x10^3/uL (0.2-0.8); MONOCYTES % (AUTO) 5 % (2-9); NEUTROPHILS # (AUTO) 6.74 x10^3/uL (1.8-6.8); NEUTROPHILS % (AUTO) 83 % (42-75)
[2019-01-13 07:59] LABS: ANISOCYTOSIS 1+; OVALOCYTES 1+; TARGET CELLS 1+
[2019-01-13 08:00] LABS: <PLATELET ESTIMATE> ADEQUATE; <PLT MORPHOLOGY> NORMAL PLT MORPH; LARGE PLATELETS 1+; POLYCHROMASIA 1+
[2019-01-13] MEDS ORDERED: CEFAZOLIN PMX 2GM/100ML 100 ML IVPB SCH (09:52)
[2019-01-13] MEDS ORDERED: CEFAZOLIN 2,000 MG in SODIUM CHLORIDE 0.9% 100 ML IVPB SCH (09:54)
[2019-01-13] MEDS ORDERED: CEFAZOLIN 2,000 MG in SODIUM CHLORIDE 0.9% 50 ML IVPB SCH (09:55)
[2019-01-13] MEDS: MULTIVITS,STRESS FORMULA 1 TABLET PO SCH (10:41)
[2019-01-13] MEDS: CINACALCET 30 MG TABLET PO SCH (10:42)
[2019-01-13] MEDS: AMIODARONE 200 MG TABLET PO SCH ×2 (10:42→21:00)
[2019-01-13] MEDS: PANTOPRAZOLE 20MG TABLET PO SCH ×2 (10:42→20:26)
[2019-01-13] MEDS: CALCIUM ACETATE 667 MG CAPSULE PO SCH ×3 (10:42→17:00)
[2019-01-13] MEDS: CHOLECALCIFEROL 1,000 UNIT TABLET PO SCH (10:42)
[2019-01-13] MEDS: ISOSORBIDE MONONITRATE ER 30 MG TABLET PO SCH (10:43)
[2019-01-13] MEDS: METOPROLOL TARTRATE 25 MG TABLET PO SCH ×2 (10:43→20:25)
[2019-01-13 12:40] VITALS: BP 96/57
[2019-01-13 19:08] VITALS: BP 86/51
[2019-01-13] MEDS: ATORVASTATIN 10 MG TABLET PO SCH (20:26)
[2019-01-13 23:32] VITALS: BP 175/69
[2019-01-14 00:12] VITALS: BP 92/53
[2019-01-14] MEDS: HEPARIN 5,000 UNITS/ML, 1ML SQ SCH ×3 (06:00→23:12)
[2019-01-14] MEDS: LEVOTHYROXINE 75 MCG TABLET PO SCH (06:00)
[2019-01-14] MEDS: ASPIRIN 325 MG TABLET PO SCH (06:00)
[2019-01-14 06:38] VITALS: BP 137/61
[2019-01-14] MEDS: CALCIUM ACETATE 667 MG CAPSULE PO SCH ×3 (08:00→17:00)
[2019-01-14 08:25] LABS: ALBUMIN 1.6 g/dL (3.4-5.0); ANION GAP 10 mmol/L (5-15); CALCIUM 10.6 mg/dL (8.5-10.1); CHLORIDE 102 mmol/L (98-107)
[2019-01-14 08:27] LABS: ALKALINE PHOSPHATASE 489 U/L (45-117); TOTAL PROTEIN 7.3 g/dL (6.4-8.2)
[2019-01-14 08:36] LABS: ALANINE AMINOTRANSFERASE 7 U/L (12-78)
[2019-01-14] MEDS: PANTOPRAZOLE 20MG TABLET PO SCH (09:00)
[2019-01-14] MEDS: AMIODARONE 200 MG TABLET PO SCH ×2 (09:00→22:29)
[2019-01-14] MEDS: CHOLECALCIFEROL 1,000 UNIT TABLET PO SCH (09:00)
[2019-01-14] MEDS: CINACALCET 30 MG TABLET PO SCH (09:00)
[2019-01-14] MEDS: MULTIVITS,STRESS FORMULA 1 TABLET PO SCH (09:00)
[2019-01-14] MEDS: ISOSORBIDE MONONITRATE ER 30 MG TABLET PO SCH (09:00)
[2019-01-14] MEDS: METOPROLOL TARTRATE 25 MG TABLET PO SCH ×2 (09:00→22:29)
[2019-01-14 09:11] LABS: MEAN PLATELET VOLUME 8.8 fL (7.4-10.4); PLATELET COUNT 181 x10^3/uL (130-400); RED BLOOD COUNT 2.42 x10^6/uL (4.38-5.82); RED CELL DISTRIBUTION WIDTH 18.3 % (9.4-14.8)
[2019-01-14 09:34] LABS: MD YES
[2019-01-14 09:36] LABS: BANDS%(MANUAL) 5 % (0-7); BASOS#(MANUAL) 0.08 x10^3/uL (0-0.1); BASOS% (MANUAL) 1 % (0-1); EOS#(MANUAL) 0.48 x10^3/uL (0.0-0.4); EOS% (MANUAL) 6 % (1-7); LYMPH#(MANUAL) 0.48 x10^3/uL (1-3.4); LYMPHS% (MANUAL) 6 % (22-44); MONOS#(MANUAL) 0.32 x10^3/uL (0.3-2.7); MONOS% (MANUAL) 4 % (2-9); SEG#(MANUAL) 6.24 x10^3/uL (1.8-6.8); SEGS% (MANUAL) 78 % (42-75)
[2019-01-14 09:37] LABS: ANISOCYTOSIS 1+; POLYCHROMASIA 1+
[2019-01-14 09:38] LABS: <PLATELET ESTIMATE> ADEQUATE; <PLT MORPHOLOGY> NORMAL PLT MORPH; TARGET CELLS 1+
[2019-01-14 11:04] VITALS: BP 103/62
[2019-01-14 13:33] VITALS: BP 130/58
[2019-01-14] MEDS: CEFAZOLIN 2,000 MG in SODIUM CHLORIDE 0.9% 50 ML IV SCH ×2 (17:42→18:38)
[2019-01-14 18:52] VITALS: BP 90/54
[2019-01-14] MEDS: ATORVASTATIN 10 MG TABLET PO SCH (22:29)
[2019-01-14] MEDS: PANTOPRAZOLE 40 MG IV IVPush SCH (22:35)
[2019-01-15 00:12] VITALS: BP 147/78
[2019-01-15 00:25] VITALS: BP 104/64
[2019-01-15] MEDS: ASPIRIN 325 MG TABLET PO SCH (06:00)
[2019-01-15] MEDS: LEVOTHYROXINE 75 MCG TABLET PO SCH (06:00)
[2019-01-15 06:41] LABS: ALBUMIN 1.6 g/dL (3.4-5.0); ANION GAP 11 mmol/L (5-15); CALCIUM 10.3 mg/dL (8.5-10.1); CHLORIDE 105 mmol/L (98-107); CREATININE 6.54 mg/dL (0.7-1.3)
[2019-01-15 06:47] LABS: MEAN CORPUSCULAR HEMOGLOBIN 31.9 pg (27.5-34.5); MEAN CORPUSCULAR HGB CONC 33.8 g/dL (33.2-36.2); MEAN CORPUSCULAR VOLUME 94.4 fL (81-97); MEAN PLATELET VOLUME 8.7 fL (7.4-10.4); PLATELET COUNT 155 x10^3/uL (130-400); RED BLOOD COUNT 2.35 x10^6/uL (4.38-5.82); RED CELL DISTRIBUTION WIDTH 18.4 % (9.4-14.8)
[2019-01-15 06:51] VITALS: BP 110/59
[2019-01-15] MEDS: HEPARIN 5,000 UNITS/ML, 1ML SQ SCH ×2 (07:00→15:00)
[2019-01-15] MEDS: CALCIUM ACETATE 667 MG CAPSULE PO SCH ×2 (08:00→12:00)
[2019-01-15 08:51] LABS: BASOPHILS # (AUTO) 0.01 x10^3/uL (0-0.1); BASOPHILS % (AUTO) 0 % (0-1); EOSINOPHILS # (AUTO) 0.32 x10^3/uL (0-0.4); EOSINOPHILS % (AUTO) 5 % (1-7); LYMPHOCYTES # (AUTO) 0.64 x10^3/uL (1-3.4); LYMPHOCYTES % (AUTO) 10 % (22-44); MONOCYTES # (AUTO) 0.26 x10^3/uL (0.2-0.8); MONOCYTES % (AUTO) 4 % (2-9); NEUTROPHILS # (AUTO) 5.14 x10^3/uL (1.8-6.8); NEUTROPHILS % (AUTO) 81 % (42-75)
[2019-01-15 08:52] LABS: ANISOCYTOSIS 1+; MD MORPH REVIEW ONLY; POLYCHROMASIA 1+
[2019-01-15 08:53] LABS: <PLATELET ESTIMATE> ADEQUATE; <PLT MORPHOLOGY> NORMAL PLT MORPH; TARGET CELLS 1+
[2019-01-15] MEDS: CHOLECALCIFEROL 1,000 UNIT TABLET PO SCH (09:00)
[2019-01-15] MEDS: CINACALCET 30 MG TABLET PO SCH (09:00)
[2019-01-15] MEDS: METOPROLOL TARTRATE 25 MG TABLET PO SCH (09:00)
[2019-01-15] MEDS: MULTIVITS,STRESS FORMULA 1 TABLET PO SCH (09:00)
[2019-01-15] MEDS: ISOSORBIDE MONONITRATE ER 30 MG TABLET PO SCH (09:00)
[2019-01-15] MEDS: AMIODARONE 200 MG TABLET PO SCH (14:27)
[2019-01-15] MEDS: PANTOPRAZOLE 40 MG IV IVPush SCH (14:27)
[2019-01-15] MEDS ORDERED: AMIO200T42 PO (15:20)
[2019-01-15] MEDS ORDERED: DARB40VI SQ (15:20)
[2019-01-15] MEDS ORDERED: Pantoprazole IVPush (15:20)
[2019-01-15] MEDS ORDERED: ATOR10TA9 PO (15:20)
[2019-01-15] MEDS ORDERED: NITR0.4T SL (15:20)
[2019-01-15] MEDS ORDERED: ASPI325T17 PO (15:20)
[2019-01-15] MEDS ORDERED: CEFA2SYR4 IV (15:33)
== END 2019-01-15 17:30 | DRG 871 ==
LOC: ED 17:18 → EDIP 17:19 → ED 17:56 → 5SO 21:20 → 4EST 01-14 11:03
PROVIDERS: ADMIT Internal Medicine; ATTEND Internal Medicine
PROC: 5A1D70Z Performance of Urinary Filtration, Intermittent, Less than 6 Hours Per Day (ICD-10-PCS; principal; 2019-01-02)
PROC: 5A1D70Z Performance of Urinary Filtration, Intermittent, Less than 6 Hours Per Day (ICD-10-PCS; 2019-01-04)
PROC: 5A1D70Z Performance of Urinary Filtration, Intermittent, Less than 6 Hours Per Day (ICD-10-PCS; 2019-01-05)
PROC: 5A1D70Z Performance of Urinary Filtration, Intermittent, Less than 6 Hours Per Day (ICD-10-PCS; 2019-01-07)
PROC: 5A1D70Z Performance of Urinary Filtration, Intermittent, Less than 6 Hours Per Day (ICD-10-PCS; 2019-01-09)
PROC: 5A1D70Z Performance of Urinary Filtration, Intermittent, Less than 6 Hours Per Day (ICD-10-PCS; 2019-01-12)
PROC: 5A1D70Z Performance of Urinary Filtration, Intermittent, Less than 6 Hours Per Day (ICD-10-PCS; 2019-01-15)
DX: A41.9 Sepsis, unspecified organism (principal); N18.6 End stage renal disease; I47.2 Ventricular tachycardia; I13.2 Hypertensive heart and chronic kidney disease with heart failure and with stage 5 chronic kidney disease, or end stage renal disease; I50.22 Chronic systolic (congestive) heart failure; E44.0 Moderate protein-calorie malnutrition; J98.11 Atelectasis; I82.611 Acute embolism and thrombosis of superficial veins of right upper extremity; I25.9 Chronic ischemic heart disease, unspecified; M19.011 Primary osteoarthritis, right shoulder; B95.61 Methicillin susceptible Staphylococcus aureus infection as the cause of diseases classified elsewhere; I25.10 Atherosclerotic heart disease of native coronary artery without angina pectoris; G47.33 Obstructive sleep apnea (adult) (pediatric); E78.5 Hyperlipidemia, unspecified; I08.0 Rheumatic disorders of both mitral and aortic valves; D69.6 Thrombocytopenia, unspecified; R13.10 Dysphagia, unspecified; D63.1 Anemia in chronic kidney disease; F03.90 Unspecified dementia, unspecified severity, without behavioral disturbance, psychotic disturbance, mood disturbance, and anxiety; I48.91 Unspecified atrial fibrillation; E03.9 Hypothyroidism, unspecified; I27.20 Pulmonary hypertension, unspecified; M18.11 Unilateral primary osteoarthritis of first carpometacarpal joint, right hand; N25.0 Renal osteodystrophy; Z66 Do not resuscitate; Z51.5 Encounter for palliative care; Z95.1 Presence of aortocoronary bypass graft; I25.2 Old myocardial infarction; Z99.2 Dependence on renal dialysis; Z90.49 Acquired absence of other specified parts of digestive tract; Z90.89 Acquired absence of other organs; Z88.0 Allergy status to penicillin; Z79.899 Other long term (current) drug therapy; Z79.82 Long term (current) use of aspirin; Z87.11 Personal history of peptic ulcer disease; Z82.49 Family history of ischemic heart disease and other diseases of the circulatory system
CPT/HCPCS: 36415; 70450; 71045; 74176; 76700; 80048; 80053; 80061; 80069; 80202; 82306; 82310; 82728; 82962; 83540; 83550; 83735; 83970; 84100; 84443; 84484; 84550; 85014; 85018; 85025; 85045; 85651; 86140; 87040; 87077; 87147; 87186; 92950; 93005; 93306; 93970; 93990; 99285; G0378; J0690; J0882; J1644; J3370; 92523-GN; C9113; J0282; J1940; J7030; J7050